=== PATIENT | female | born 1965 | race Caucasian/White ===

== ENCOUNTER 2016-09-17 19:04 | Emergency (ER) | payer OTHER ==
[2016-09-17 19:25] VITALS: BP 133/77
--- NOTE | 2016-09-17 19:49 | UC ---
Respiratory Complaint HPI - HPI Summary HPI Summary: Patient states she has had a sinus infection for almost 2 weeks. she states she gets them every year and always feels the same, with pressure around the eyes and around the cheeks. she has an associated cough but no sputum production. denies rhinorrhea. Denies ear pain, eye pain or tearing. Denies abd symptoms, nausea, vomiting or GILLETTE. - History of Current Complaint Chief Complaint: UCGeneralIllness Stated Complaint: SINUSES Hx Obtained From: Patient Hx Last Menstrual Period: n/a ?: No Onset/Duration: Sudden Onset Timing: Constant Severity Initially: Moderate Pain Intensity: 2 Pain Scale Used: 0-10 Numeric Character: Cough: Productive Aggravating Factors: Deep Breaths Associated Signs And Symptoms: Positive: Negative - Risk Factors Pulmonary Embolism Risk Factors: Negative Cardiac Risk Factors: Negative Pseudomonas Risk Factors: Negative Tuberculosis Risk Factors: Negative - Allergies/Home Medications Allergies/Adverse Reactions: Allergies Allergy/AdvReac Type Severity Reaction Status Date / Time Vitamin K Allergy convulsions Verified 08/19/16 10:04 PMH/Surg Hx/FS Hx/Imm Hx Previously Healthy: Yes Endocrine History Of: Denies: Diabetes Cardiovascular History Of: Denies: Hypertension, Pacemaker/ICD Respiratory History Of: Reports: Bronchitis Denies: Asthma GI/ History Of: Denies: Renal Disease - Surgical History Surgical History: Yes Surgery Procedure, Year, and Place: uterine ablation, left carpal and cupal tunnel releases-last surgery was 08/2015 - Family History Known Family History: Positive: Hypertension, Diabetes, Other - [place] - Social History Occupation: Employed Full-time Lives: With Family Alcohol Use: Weekly Alcohol Amount: 1-2 Substance Use Type: None Smoking Status (MU): Never Smoked Tobacco Have You Smoked in the Last Year: No Review of Systems Constitutional: Fatigue Skin: Negative ENT: Nasal Discharge, Other - sinus congestion Respiratory: Negative Cardiovascular: Negative Gastrointestinal: Negative Motor: Negative Neurovascular: Negative Musculoskeletal: Negative Psychological: Negative All Other Systems Reviewed And Are Negative: Yes Physical Exam Triage Information Reviewed: Yes Appearance: Well-Appearing, No Pain Distress, Well-Nourished Vital Signs: Initial Vital Signs Temp 98.4 F 09/17/16 19:08 Pulse 73 09/17/16 19:08 Resp 16 09/17/16 19:08 BP 133/77 09/17/16 19:08 Pulse Ox 99 09/17/16 19:08 Vital Signs Reviewed: Yes Eye Exam: Normal Eyes: Positive: Conjunctiva Clear ENT: Positive: Nasal congestion, Other: - painful on palpation Neck exam: Normal Neck: Positive: Supple, Nontender, No Lymphadenopathy Respiratory Exam: Normal Respiratory: Positive: Chest non-tender, Lungs clear Cardiovascular Exam: Normal Musculoskeletal Exam: Normal Musculoskeletal: Positive: Strength Intact, ROM Intact Neurological Exam: Normal Neurological: Positive: Alert Psychological Exam: Normal Psychological: Positive: Normal Response To Family, Age Appropriate Behavior Skin Exam: Normal UC Diagnostic Evaluation - Laboratory O2 Sat by Pulse Oximetry: 99 Respiratory Course/Dx - Course Course Of Treatment: Patient given augmentin twice daily for 7 days for sinusitis symptoms based on physical exam of painful maxillary sinus/pressure on palpation. - Differential Dx/Diagnosis Differential Diagnosis/HQI/PQRI: Bronchitis, Lower Resp Infection, Sinusitis Provider Diagnoses: sinusitis Discharge - Discharge Plan Condition: Stable Disposition: HOME Prescriptions: Albuterol HFA INHALER* [Ventolin HFA Inhaler*] 1 puff INH Q4H PRN #1 mdi PRN Reason: Cough Amoxicillin/Clavulanate TAB* [Augmentin TAB 875*] 875 mg PO BID #14 tab Patient Education Materials: Sinusitis (ED) Referrals: Rick Zaragoza MD [Primary Care Provider] - Additional Instructions: Fluids, rest, continue with mucinex and flonase. Images Head: 1 - painful on palpation
== END 2016-09-17 19:48 | disposition home or self-care (01) ==
LOC: UCCORT 19:04
DX: J32.9 Chronic sinusitis, unspecified (principal); Z88.8 Allergy status to other drugs, medicaments and biological substances
CPT/HCPCS: 99212; G0463

== ENCOUNTER 2016-12-26 15:00 | Emergency (ER) | payer OTHER ==
[2016-12-26 16:38] VITALS: BP 107/64
--- NOTE | 2016-12-26 16:50 | UC ---
Skin Complaint HPI - HPI Summary HPI Summary: ITCHY RASH MID LOWER BACK X 2 DAYS NO PAINFUL, NO KNOW ALLERGIC CONTACTS - History of Current Complaint Chief Complaint: UCRash Time Seen by Provider: 12/26/16 16:31 Stated Complaint: RASH Hx Obtained From: Patient Hx Last Menstrual Period: n/a ?: No Onset/Duration: Sudden Onset, Lasting Days - 2, Still Present Timing: Constant Onset Severity: Moderate Current Severity: Moderate Location: Discrete - MID LOWER BACK Character: Pruritus, Redness Aggravating: Nothing Alleviating: Nothing Associated Signs & Symptoms: Positive: Negative - Allergy/Home Medications Allergies/Adverse Reactions: Allergies Allergy/AdvReac Type Severity Reaction Status Date / Time Vitamin K Allergy convulsions Verified 12/26/16 16:38 Review of Systems Constitutional: Negative Skin: Negative Eyes: Negative ENT: Negative Respiratory: Negative Cardiovascular: Negative Gastrointestinal: Negative Genitourinary: Negative Motor: Negative Neurovascular: Negative Musculoskeletal: Negative Neurological: Negative Psychological: Negative All Other Systems Reviewed And Are Negative: Yes PMH/Surg Hx/FS Hx/Imm Hx Endocrine History Of: Denies: Diabetes Cardiovascular History Of: Denies: Hypertension, Pacemaker/ICD Respiratory History Of: Reports: Bronchitis Denies: Asthma GI/ History Of: Denies: Renal Disease - Surgical History Surgical History: Yes Surgery Procedure, Year, and Place: uterine ablation, left carpal and cupal tunnel releases-last surgery was 08/2015 - Family History Known Family History: Positive: Hypertension, Diabetes, Other - [place] - Social History Alcohol Use: Weekly Alcohol Amount: 1-2 Substance Use Type: None Smoking Status (MU): Never Smoked Tobacco Have You Smoked in the Last Year: No - Immunization History Most Recent Influenza Vaccination: none Physical Exam Triage Information Reviewed: Yes Appearance: Well-Appearing, No Pain Distress, Well-Nourished Vital Signs: Initial Vital Signs Temp 98.5 F 12/26/16 16:33 Pulse 61 12/26/16 16:33 Resp 17 12/26/16 16:33 BP 107/64 12/26/16 16:33 Pulse Ox 99 12/26/16 16:33 Eye Exam: Normal Eyes: Positive: Conjunctiva Clear ENT: Positive: Normal ENT inspection, Hearing grossly normal, Pharynx normal Neck exam: Normal Neck: Positive: Supple, Nontender, No Lymphadenopathy Respiratory: Positive: Chest non-tender, Lungs clear, Normal breath sounds Cardiovascular: Positive: RRR, No Murmur, Pulses Normal Skin: Positive: rashes - MACULAR RASH ABOUT 5 CM IN DIAMETER MID LOWER BACK Course/Dx - Diagnoses Provider Diagnoses: ECZEMA Discharge - Discharge Plan Condition: Stable Disposition: HOME Prescriptions: Triamcinolone 0.1% CREAM (NF) [Kenalog 0.1% Cream (NF)] 1 applic .SEE ORDER BID #30 gm Patient Education Materials: Eczema (ED) Referrals: Rick Zaragoza MD [Primary Care Provider] - If Needed
== END 2016-12-26 16:50 | disposition home or self-care (01) ==
LOC: UCCORT 15:00
DX: L30.9 Dermatitis, unspecified (principal)
CPT/HCPCS: 99212; G0463

== ENCOUNTER 2017-03-08 08:37 | Day surgery (SDC) | payer OTHER ==
--- NOTE | 2017-02-26 15:36 | HP ---
PREOPERATIVE HISTORY AND PHYSICAL: DATE OF ADMISSION/SURGERY: 03/08/17 DATE OF OFFICE VISIT: 02/26/17 ATTENDING SURGEON: Sera Alicea MD. PROCEDURE: Right shoulder arthroscopic excision distal clavicle, decompression, debridement, and larose bpectoral biceps tenodesis. CHIEF COMPLAINT: Right shoulder pain. HISTORY OF PRESENT ILLNESS: Jackeline is a 51-year-old female who presents to the clinic for ongoing r ight shoulder pain due to biceps tendinitis, impingement syndrome and AC joint arthritis. Patient f molly conservative measures and therefore agreed to undergo a right shoulder arthroscopic excision d istal clavicle, decompression, debridement and subpectoral biceps tenodesis. PAST MEDICAL HISTORY: 1. Phlebitis. 2. DVT. 3. High cholesterol. 4. Arthritis. 5. Anemia. 6. Obstructive sleep apnea. PAST SURGICAL HISTORY: Bilateral carpal tunnel and cubital tunnel release, and a colonoscopy. Denies prior complications with anesthesia. MEDICATIONS: 1. Valium 10 mg, take 45 minutes prior to MRI. 2. Methylphenidate HCl 5 mg, take 2 tablets by mouth every morning and 1 tablet in the afternoon. 3. Atorvastatin 10 mg daily. 4. Venlafaxine HCl ER 37.5 mg daily. ALLERGIES: VITAMIN K. FAMILY HISTORY: Positive for hypertension and AFib in her father. SOCIAL HISTORY: She lives with her spouse. She works as a speech pathologist. She denies tobacco u se. She reports occasional alcohol consumption. She is right handed. REVIEW OF SYSTEMS: General: Negative for fever, chills, night sweats. No known anesthesia problem s. HEENT: Negative for headache, lightheadedness, or syncopal episodes. Integumentary: Negative for abrasions, lesions, or open wounds. Cardiothoracic: Negative for chest pain, palpitations or ed rell. Negative for hypertension. Pulmonary: Negative for shortness of breath with exertion, chroni c cough or COPD. GI: Negative for nausea, vomiting, diarrhea, constipation. Positive for intermitt ent GERD. : Negative for nocturia, urinary frequency, history of UTI or kidney problems. Muscul oskeletal: Positive for current complaint. Neuro: Denies numbness, tingling. Denies history of s eizure, stroke, or epilepsy. Endocrine: Negative for diabetes or thyroid issues. Heme: Positive for history of DVT. Denies prior history of PE. Denies bleeding disorder. Infectious Disease: Neg ative for history of MRSA, hep C, or HIV. PHYSICAL EXAMINATION GENERAL: Well-developed, well-nourished 51-year-old female, in no acute distress. Alert and oriente d x3. Appropriate mood and affect. VITAL SIGNS: Height is 67, weight 180, pulse 91, blood pressure 116/84, temperature 98.6, BMI 28.2. HEENT: Normocephalic, atraumatic. PERRLA. Throat clear NECK: Supple. PULMONARY: Lungs clear to auscultation bilaterally. No wheezing, rhonchi, or rales. CARDIO: Regular rate and rhythm, S1, S2. No murmurs, gallops, rubs. No edema. ABDOMEN: Positive bowel sounds, soft, nontender. NEUROLOGIC: Alert and oriented x3. Cranial nerves grossly intact. Sensation intact to light touch . MUSCULOSKELETAL: Right upper extremity, skin is intact. No warmth, erythema. Tenderness to palpati on over the AC joint in the anterior joint line as well as the proximal biceps tendon, forward flexi on 150, abduction 120. External rotation 45, internal rotation to the lumbar spine. +4/5 strength to rotator cuff testing with pain. +2 radial and ulnar pulses. Sensation is intact to light touch distally. STUDIES: MRI of the right shoulder reveals partial thickness tearing of bursal side of the suprasp inatus tendon as well as SLAP tear, biceps tendinitis with fluid in the bicipital groove, also AC ahsan int arthritis. IMPRESSION: Right shoulder acromioclavicular arthritis, partial rotator cuff tear and biceps tendin itis. PLAN: Patient is scheduled to undergo a right shoulder arthroscopic excision distal clavicle, decom pression, debridement, and subpectoral biceps tenodesis with Dr. Alicea on 03/08/17. Patient has be en cleared by her primary care physician. The primary care physician recommends aspirin 325 mg daily starting 2 days after surgery until the right upper extremity is no longer immobilized for DVT prop hylaxis since the patient has a history of prior DVT. She will return to the office 10 to 14 days p ostop for followup and suture removal. Percocet will be prescribed to the patient's pharmacy for po stop pain management and Keflex was sent for antibiotic prophylaxis. ROBERTO CARLOS [place], [place] [id number]/[facility] #: [id number]
[~2017-03-08 08:37] MED LIST: Buffered Lidocaine 0.9% SYRIN* 5 ML/SYR SYRINGE INTRADERM ONE; Bupivacaine 0.25% SDV* 30 ML ONE; Famotidine IV* 10 MG/ML 2 ML (20 mg) IV ONE; Morphine INJ* 2 MG/ML 1 ML SYRINGE IV PRN; PROCHLORPERAZINE INJ 5 MG/ML 2 ML VIAL IV PRN; Scopolamine 1.5 mg* PATCH TRANSDERM PRN; fentaNYL* 50 MCG/ML 2 ML VIAL (100 MCG VIAL) IV PRN; oxyCODONE/Acetamin 5/325 MG* TAB PO PRN
[2017-03-08] MEDS ORDERED: ceFAZolin 2 GM PREMIX(*) 2 GM/50 ML BAG IVPB ONE (08:49)
[2017-03-08] MEDS ORDERED: Buffered Lidocaine 0.9% SYRIN* 5 ML/SYR SYRINGE ONE (08:49)
[2017-03-08] MEDS ORDERED: Famotidine IV* 10 MG/ML 2 ML (20 mg) ONE (08:49)
[2017-03-08] MEDS ORDERED: Midazolam* 1 MG/ML 5 ML VIAL (5 MG) ONE (09:50)
[2017-03-08] MEDS ORDERED: fentaNYL* 50 MCG/ML 2 ML VIAL (100 MCG VIAL) ONE (09:50)
[2017-03-08] MEDS ORDERED: KETAMINE HCL* 50 MG/ML 10 ML VIAL ONE (09:50)
[2017-03-08] MEDS ORDERED: Bupivacaine 0.25% SDV* 30 ML ONE (10:09)
[2017-03-08] MEDS ORDERED: Lidocaine 2% PF * 5 ML VIAL ONE (11:17)
[2017-03-08] MEDS ORDERED: Ondansetron INJ* 2 MG/ML VIAL ONE (11:17)
[2017-03-08] MEDS ORDERED: Dexamethasone IV* 4 MG/ML 1 ML (4 MG) ONE (11:17)
[2017-03-08] MEDS ORDERED: Ketorolac INJ* 30 MG/ML 1 ML VIAL ONE (11:17)
[2017-03-08] MEDS ORDERED: Propofol* 10 MG/ML 20 ML BTL IV PUSH ONE (11:17)
[2017-03-08] MEDS ORDERED: EPHEDrine (Pressors)* 50 MG/ML VIAL ONE (11:17)
[2017-03-08] MEDS ORDERED: methylPREDNISolone ACETATE 80* 80 MG/ML 1 ML VIAL ONE (11:36)
[2017-03-08] MEDS ORDERED: Morphine INJ* 10 MG/ML 1 ML SYRINGE ONE (11:52)
[2017-03-08] MEDS ORDERED: PROCHLORPERAZINE INJ 5 MG/ML 2 ML VIAL ONE (13:20)
[2017-03-08] MEDS ORDERED: Scopolamine 1.5 mg* PATCH ONE (13:20)
[2017-03-08 14:21] VITALS: BP 110/66
[2017-03-11] MEDS ORDERED: Scopolomine PATCH Remove* 1 NOTE MISC PATCH OFF ONE (06:09)
--- NOTE | 2017-03-18 02:21 | OP ---
CC: PCP, Dr. Rick Miranda* DATE OF OPERATION: 03/08/17 - [facility] DATE OF : 63 SURGEON: Sera Alicea MD BOW MAKER PRODUCTION: VIVIAN Leonard. An assistant superintendent for curriculum was needed for the entirety of the case for positioning, retraction, and was utilized throughout all portions of the case. ANESTHESIOLOGIST: Dr. Werner. ANESTHESIA: General interscalene block. PRE-OP DIAGNOSES: Right shoulder impingement, AC joint arthritis, biceps tendonitis with possible SLAP tear. POST-OP DIAGNOSES: Right shoulder impingement, AC joint arthritis, biceps tendonitis with possible SLAP tear. OPERATIVE PROCEDURES: 1. Right shoulder arthroscopy with extensive glenohumeral debridement including mild chondroplasty. 2. Subacromial decompression with acromioplasty. 3. Distal clavicle excision. 4. Subpectoral biceps tenodesis. IMPLANTS USED: One Q-Fix 2.8 mm. COMPLICATIONS: None. ESTIMATED BLOOD LOSS: Minimal. DISPOSITION: Stable. INDICATIONS: Jackeline Sidhu is a 51-year-old female who has had a several-month history of right shoulder pain, AC joint arthritis as well as impingement, and bicipital pain. She has failed conservative management including injections, physical therapy, and has elected to proceed with surgical treatment. Risks and benefits of surgery were discussed at length including, but not limited to bleeding, infection, damage to nerves, vessels, surrounding structures, wound non-healing, persistent pain, need for further surgery, scarring, stiffness, incomplete relief of symptoms, failure of the repair, risk of anesthesia as well as risk of DVT. She does have a previous history of DVT and therefore, we will place her on Lovenox postoperatively. DESCRIPTION OF PROCEDURE: The patient was greeted in the preoperative area by the attending surgeon. Correct extremity was marked and consent was confirmed. The patient then underwent interscalene nerve block by the anesthesiologist after which she was brought back to the operating suite where she was placed in the left lateral decubitus position with a small axillary roll. All bony prominences were padded. She was supported with a pegboard. The right arm was draped with 10 pounds of traction. The right shoulder was prepped and draped in the usual sterile fashion beginning with a chlorhexidine soap, scrub, and alcohol wipe, and a final prep with ChloraPrep. After appropriate surgical pause indicating site, side, procedure, and administration of antibiotics, the standard postero-lateral portal was made sharply with an 11 blade. Scope was introduced into the joint. The joint was examined. There was obvious tear in the superior labrum. Anterior and posterior labrum and the inferior recess was intact. The inner surface of the supraspinatus tendon was intact with mild fraying. The subscapularis was also intact, but had some mild fraying as well. The anterior portal was made in an outside-in fashion. The biceps was then tenotomized and the shaver was brought in to debride the anterior, posterior, superior labrum and the undersurface of the subscapularis, which was otherwise intact. The inner surface of the supraspinatus was evaluated and had mild amount of partial tearing, but was otherwise intact. This was then probed and marked with a 0 PDS suture to be identified on the bursal side. There was no tearing bursally. Once the debridement was completed, a small amount of chondral wear grade 1 to 2 changes were then debrided back along the glenoid. Once this was completed, attention was directed to the subacromial space. The scope was introduced into the subacromial space and the lateral portal was made in an outside-in fashion. Shaver was used to debride back the abundant bursa that was present. A moderate size subacromial spur was identified and then debrided back using the 4.0 oval rakan. The bursectomy was done with care to protect the previously placed marking sutures. Once the decompression was completed, all loose fluid and debris was removed. Attention was directed to the AC joint. The rakan was brought into the anterior portal and approximately 8 mm of the distal clavicle was resected with care to preserve the CT ligaments. The clavicle was taken through range of motion and found to be stable. All fluid and debris was removed and then attention was directed to the rotator cuff. The probe was used to gently probe the bursal side of the cuff and was found to be intact and decision was made to not repair the cuff as there was less than 5 % tearing on the undersurface and no bursal-sided tearing and did appear to have adequate tissue. At this point, attention was directed to the biceps. The bed was then air planed to the right side. The anterior aspect of the shoulder was prepped again with ChloraPrep and a 15 blade was used to make an incision in line with the biceps tendon. The soft tissue were carefully dissected using Metzenbaum scissors. Once the pec fascia was identified, the remainder of the dissection was done bluntly. The pec was then superiorly elevated using the [place] blade. The biceps groove was then palpated and a small juan manuel in the groove was then made using electrocautery device. Biceps was brought through the wound and examined. There was abundant hyperemia and synovitis present. The bicipital groove was then prepared in usual fashion with electrocautery device with the red ball rasp and the osteotome. At this point, the Q-Fix guide was then used to drill unicortically to deploy the Q-Fix anchor. This was then deployed with excellent purchase. The biceps was then secured. Sutures were passed through the biceps tendon using Ezekiel-Sunday type configuration. The excess stump was debrided back. The biceps was then shuttled back to the wound and then it was secured using knot tie. The wounds were copiously irrigated with sterile fluid. The subacromial space was injected with 80 mg of Depo-Medrol and 5 cc of Marcaine. The portals were closed with 3-0 nylon. The anterior wounds were closed in layers with 2-0 Vicryl and 3-0 Monocryl. Sterile dressings were applied. The anterior wound was injected with 20 cc of 0.25% Marcaine plain. Cryo/Cuff and UltraSling were then applied. She was then awoke from anesthesia and transferred to the PACU in stable condition. POSTOPERATIVE PLAN: She will be nonweightbearing for approximately 6 weeks. She will start physical therapy in the first 10 to 14 days. She will be discharged with pain medications as well as antibiotics. DVT prophylaxis was considered and due to the previous history, we will place her on Lovenox after surgery. Then, she will transition to aspirin as per her primary care recommendations. She will follow up in 10 to 14 days for wound check and suture removal. [id number]/[facility] #: [id number] [facility] HOSPITALJason
== END 2017-03-08 14:00 | disposition home or self-care (01) ==
LOC: OREAST 08:37
PROVIDERS: ATTEND Orthopaedic Surgery
DX: M25.811 Other specified joint disorders, right shoulder (principal); M19.011 Primary osteoarthritis, right shoulder; M75.81 Other shoulder lesions, right shoulder; Z86.718 Personal history of other venous thrombosis and embolism; E78.00 Pure hypercholesterolemia, unspecified; G47.33 Obstructive sleep apnea (adult) (pediatric); Z88.8 Allergy status to other drugs, medicaments and biological substances
CPT/HCPCS: A9270-GY; C1776; J0690; J0780; J1040; J1100; J1885; J2250; J2270; J2405; J2704; J3010

== ENCOUNTER 2017-08-13 12:21 | Emergency (ER) | payer OTHER ==
[2017-08-13 13:04] VITALS: BP 125/70
--- NOTE | 2017-08-13 14:01 | UC ---
Respiratory Complaint HPI - HPI Summary HPI Summary: ONSET OF SINUS CONGESTION/PRESSURE, GILLETTE, ST, MILD COUGH AND CHEST HEAVINESS YESTERDAY. PT QUALIFIES HER SX LUNGS FEELING "HEAVY". DENIES CHEST PAIN, SOB , NAUSEA. HAD EMERGENT APPENDECTOMY 07/28/17. - History of Current Complaint Chief Complaint: UCRespiratory Stated Complaint: HEAVY CHEST POST SURGERY Time Seen by Provider: 08/13/17 13:33 Hx Obtained From: Patient Hx Last Menstrual Period: n/a Onset/Duration: Gradual Onset, Lasting Days, Still Present Timing: Constant Severity Initially: Moderate Severity Currently: Moderate Pain Intensity: 0 Pain Scale Used: 0-10 Numeric Character: Cough: Nonproductive Aggravating Factors: Nothing Alleviating Factors: Nothing Associated Signs And Symptoms: Positive: URI, Nasal Congestion, Sinus Discomfort. Negative: Fever, Chills, Pleuritic Chest Pain, Dizziness - Allergies/Home Medications Allergies/Adverse Reactions: Allergies Allergy/AdvReac Type Severity Reaction Status Date / Time Vitamin K Allergy convulsions Verified 08/13/17 13:04 PMH/Surg Hx/FS Hx/Imm Hx Endocrine History: Dyslipidemia - Surgical History Surgical History: Yes Surgery Procedure, Year, and Place: uterine ablation, left carpal and cupal tunnel releases-last surgery was 08/2015; DVT left leg post 1992- clotting factors were normal. bicep repair. clavicle reduction. appy 07/2017 - Family History Known Family History: Positive: Cardiac Disease, Hypertension, Diabetes, Other - [place] - Social History Alcohol Use: Occasionally Alcohol Amount: 1-2 Substance Use Type: None Smoking Status (MU): Never Smoked Tobacco Have You Smoked in the Last Year: No - Immunization History Most Recent Influenza Vaccination: none Review of Systems Constitutional: Fatigue ENT: Sore Throat, Nasal Discharge Respiratory: Cough, Other - LUNGS FEEL "HEAVY" Cardiovascular: Negative Gastrointestinal: Negative Neurological: Headache All Other Systems Reviewed And Are Negative: Yes Physical Exam Triage Information Reviewed: Yes Appearance: No Pain Distress, Well-Nourished, Other: - LOOK FATIGUED Vital Signs: Initial Vital Signs Temp 98.6 F 08/13/17 12:54 Pulse 84 08/13/17 12:54 Resp 24 08/13/17 12:54 BP 125/70 08/13/17 12:54 Pulse Ox 97 08/13/17 12:54 Vital Signs Reviewed: Yes Eyes: Positive: Conjunctiva Clear ENT: Positive: Hearing grossly normal, Pharynx normal, TMs normal Neck: Positive: Supple, Nontender, No Lymphadenopathy Respiratory Exam: Normal Cardiovascular Exam: Normal Abdomen Description: Positive: Soft Musculoskeletal: Positive: No Edema Neurological: Positive: Alert Psychological: Positive: Age Appropriate Behavior Skin: Positive: Other - LAP APPY INCISIONS HEALING WELL UC Diagnostic Evaluation - Laboratory O2 Sat by Pulse Oximetry: 97 - EKG Cardiac Rate: NL Cardiac Rhythm: Sinus: Normal - 70BPM Ectopy: None ST Segment: Normal Respiratory Course/Dx - Differential Dx/Diagnosis Provider Diagnoses: ACUTE BRONCHITIS Discharge - Discharge Plan Condition: Stable Disposition: HOME Prescriptions: Azithromycin [Azithromycin 500 MG TAB] 500 mg PO DAILY #5 tab Patient Education Materials: Acute Bronchitis (ED) Referrals: Rick Zaragoza MD [Primary Care Provider] - If Needed
--- OUTSIDE RECORDS SUMMARY | 2017-08-13 14:42 | XMS REPORT | Continuity of Care Document ---
:1965 Author Organization [facility] Care Team Providers Name Role Phone SHADE ROTHMAN MD Primary Care Physician Insurance Providers Payer Name Policy Number Subscriber Name Relationship [employer] [id number] AJMESKASIAALTAGRACIA BULL Advance Directives Directive Response Recorded Date/Time Advance Directive? N 07/29/17 1:12am Living Will? N 07/29/17 1:12am Health Care Proxy? N 07/29/17 1:12am Is the patient an Organ Donor? N 07/28/17 2:45pm Chief Complaint and Reason for Visit Reason for Visit ACUTE APPENDICITIS Problems Active Medical Problems Problem Onset Date Recorded Date Status Chest pain Unknown 10/26/14 Active Acute appendicitis Unknown 07/28/17 Active Medications Current Home Medications Medication Dose Units Route Directions Days/Qty Instructions Start Date ALBUTEROL 1 PUFF INHALATION EVERY 8 HOURS 1 (VENTOLIN HFA *) 1 as needed for EACH EA SOB Atorvastatin 10 MG ORAL ONCE DAILY Calcium (Lipitor) 10 MG TABLET Cholecalciferol 2,000 UNIT ORAL ONCE DAILY (Vitamin D3) (Vitamin D) 2,000 UNIT TABLET Fluticasone 1 SPR NASAL 2 TIMES A DAY Propionate NEEDED for (Flonase) 50 NASAL MCG/ACTUATION STUFFINESS SPRAY.SUSP Guaifenesin 600 MG ORAL EVERY 12 (Mucinex) 600 MG HOURS as TABLET.ER needed for COUGH Hydrocodone 1 TABLET ORAL EVERY 6 HOURS 15 may use two Bit/Acetaminophen NEEDED as tablets every 7 (Hydrocodon-Acetam needed for 8 hoursif inophen 5-325 *) 5 PAIN needed MG-325 MG TABLET Levofloxacin 500 MG ORAL ONCE DAILY 7 take it with (Levofloxacin *) food 7 500 MG TABLET Methylphenidate 5 MG ORAL EVERY EVENING (Ritalin) 5 MG TAB as needed for ALERTNESS Methylphenidate 10 MG ORAL ONCE DAILY 90 HCl 5 MG TABLET Venlafaxine HCl 75 MG ORAL ONCE DAILY 30 (Venlafaxine HCl ER) 75 MG CAP.ER.24H Past Home Medications Medication Directions Ordered Status Amoxicillin 875 Mg Tablet Tablet, 875 EVERY 12 HOURS Unknown Discontinued Mg Oral Meclizine Hcl (Antivert) 25 Mg Tablet 3 TIMES A DAY NEEDED 10/22/12 Discontinued Tablet, 25 Mg Oral Venlafaxine (Venlafaxine Hcl) 25 Mg Tab 2100 Unknown Discontinued Tab, Family History Relationship Name Date of Condition Age ( At Cause Age ( Age Gender Recorded Onset ) of At Date/Time ) SON Family history M 07/29/17 of cardiac 0 disorder SON Family history M 07/29/17 of sleep apnea 2119 FATHER Family history M 07/29/17 of hypertension 0 FATHER Family history M 07/29/17 of cardiac 2120 disorder FATHER Family history M 07/29/17 of sleep apnea 2119 BROTHER Family history M 07/29/17 of sleep apnea 2119 MOTHER Family history F 07/29/17 of sleep apnea 2119 Social History Problem Response Recorded Date Other substance/drug use NONE 07/28/17 Alcohol amt OCCAS 09/01/10 Query Response Start Date Stop Date Smoking Status Never smoker Status Date Recorded Not July 29, 2017 Hospital Discharge Instructions Physician Instructions to use at Home Activity Limitation Yes (no heavy lifting for 6 weeks) Main Diet REGULAR Special Instructions: avoid constipation. increase fruits and vegetables in your diet. use over the counter stool softener if need be. Appointments have been made with the following Providers: please have a follow up with my clinic in 10-14 days. [phone] Call your doctor for : Discharge Care Plan Problem: Manage your health Goal: Maintain health/wellness Instructions: Follow DC instructions Nursing Comments: keep follow up appointment with your Dr. Wash and pat dry incisions daily. Report any drainage, reddness or swelling on incision sites. Report any fevers to your DrVu Activity and return to work as approved by your Dr. Plan of Care Discharge Date 07/30/17 Disposition Routine Discharge Home Instructions/Education Provided Laparoscopic Appendectomy (DC) Prescriptions See Medications Section Care Plan and Goals See Discharge Instructions section Functional Status Query Response Date Recorded Do you get in and out of a chair: Independently July 29, 2017 1:12am Do you walk: Independently July 29, 2017 1:12am Do you bathe/dress: Independently July 29, 2017 1:12am Adaptive devices: None July 29, 2017 1:12am Amount of assistance needed: None July 29, 2017 1:12am Allergies, Adverse Reactions, Alerts Allergen Type Severity Reaction Status Last Updated phytonadione (vitamin K1) Allergy Severe SEIZURE Active 10/26/14 Immunizations Name Date Given Type Last Tetanus UTD Historical Influenza, Quadrivalent, Injectable Administered Vital Signs Vital Reading Collection Date/Time Result Blood Pressure 07/30/17 7:30am 100/72 Temperature 07/30/17 7:30am 98.2 F Temperature Source 07/30/17 7:30am Tympanic Respiratory Rate 07/30/17 7:30am 16 Pulse Rate 07/30/17 7:30am 62 Bedside Pulse Oximetry 07/30/17 4:50am 92 Height 07/29/17 1:12am 5 ft 7 in Height 07/29/17 1:12am 170.18 cm Weight 07/29/17 1:12am 173 lb Weight 07/29/17 1:12am 78.472 kg Body Mass Index 07/29/17 1:12am 27.1 kg/m2 Results Laboratory Results Test Name Result Units Flags Reference Collection Result Comments Date/Time Date/Time White Blood Count 10.4 K/uL 3.1-10.7 07/30/17 07/30/17 8:06am 9:50am Red Blood Count 4.55 M/uL 3.90-5.40 07/30/17 07/30/17 8:06am 9:50am Hemoglobin 13.3 gm/dL 11.6-15.8 07/30/17 07/30/17 8:06am 9:50am Hematocrit 41.7 % 36.0-46.1 07/30/17 07/30/17 8:06am 9:50am Mean Corpuscular 91.6 fl 80.9-99.0 07/30/17 07/30/17 Volume 8:06am 9:50am Mean Corpuscular 29.2 pg 25.9-32.7 07/30/17 07/30/17 Hemoglobin 8:06am 9:50am Mean Corpuscular 31.9 g/dL 30.8-34.3 07/30/17 07/30/17 Hemoglobin Concent 8:06am 9:50am Platelet Count 262 K/uL 150-400 07/30/17 07/30/17 8:06am 9:50am RDW Coefficient of 14.3 % 11.7-14.4 07/30/17 07/30/17 Variation 8:06am 9:50am Mean Platelet 10.9 fL 8.9-12.4 07/30/17 07/30/17 Volume 8:06am 9:50am Glucose Screen 118 mg/dL H 74-106 07/30/17 07/30/17 8:06am 10:08am Blood Urea 10 mg/dL 7-18 07/30/17 07/30/17 Nitrogen 8:06am 10:08am Creatinine 1.0 mg/dL 0.6-1.3 07/30/17 07/30/17 8:06am 10:08am Estimated GFR >60 mL/min >60 07/30/17 07/30/17 (Non- 8:06am 10:08am [place] Estimated GFR >60 mL/min >60 07/30/17 07/30/17 Note: () 8:06am 10:08am Persistent reduction for 3 months or more in an eGFR <60 mL/min/1.73 m2 defines CKD. Patients with eGFR values >/=60 mL/min/1.73 m2 may also have CKD if evidence of persistent proteinuria is present. The original MDRD equation for estimated GFR is not valid for patients less than 18 years of age. Additional information may be found at www.kdoqi.org. BUN/Creatinine 10.0 ratio 07/30/17 07/30/17 Ratio 8:06am 10:08am Sodium Level 140 mmol/L 136-145 07/30/17 07/30/17 8:06am 10:08am Potassium Level 3.8 mmol/L 3.5-5.1 07/30/17 07/30/17 8:06am 10:08am Chloride Level 105 mmol/L 98-107 07/30/17 07/30/17 8:06am 10:08am Carbon Dioxide 28 mmol/L 21-32 07/30/17 07/30/17 Level 8:06am 10:08am Anion Gap 7 mEq/L L 8-16 07/30/17 07/30/17 8:06am 10:08am Calcium Level 8.7 mg/dL 8.5-10.1 07/30/17 07/30/17 8:06am 10:08am Magnesium Level 2.3 mg/dL 1.8-2.4 07/30/17 07/30/17 8:06am 10:08am Red Cell 42.5 fl 3-47 07/28/17 07/28/17 Distribution Width 4:58pm 5:06pm Neutrophils (%) 74.9 % H 40.4-72.8 07/28/17 07/28/17 (Auto) 4:58pm 5:06pm Lymphocytes (%) 15.3 % L 20.0-42.0 07/28/17 07/28/17 (Auto) 4:58pm 5:06pm Monocytes (%) 8.2 % 4.3-13.2 07/28/17 07/28/17 (Auto) 4:58pm 5:06pm Eosinophils (%) 1.3 % 0.0-6.6 07/28/17 07/28/17 (Auto) 4:58pm 5:06pm Basophils (%) 0.3 % 0.0-1.1 07/28/17 07/28/17 (Auto) 4:58pm 5:06pm Neutrophils # 8.65 K/uL H 1.8-7.0 07/28/17 07/28/17 (Auto) 4:58pm 5:06pm Lymphocytes # 1.76 K/uL 1.0-4.0 07/28/17 07/28/17 (Auto) 4:58pm 5:06pm Monocytes # (Auto) 0.94 K/uL H 0.3-0.9 07/28/17 07/28/17 4:58pm 5:06pm Eosinophils # 0.15 K/uL 0.0-0.5 07/28/17 07/28/17 (Auto) 4:58pm 5:06pm Basophils # (Auto) 0.03 K/uL 0.0-0.1 07/28/17 07/28/17 4:58pm 5:06pm Total Protein 7.3 g/dL 6.4-8.2 07/28/17 07/28/17 4:58pm 5:37pm Albumin 3.6 g/dL 3.4-5.0 07/28/17 07/28/17 4:58pm 5:37pm Globulin 3.7 g/dL 1.9-4.3 07/28/17 07/28/17 4:58pm 5:37pm Albumin/Globulin 1.0 ratio 07/28/17 07/28/17 Ratio 4:58pm 5:37pm Total Bilirubin 0.6 mg/dL 0.2-1.0 07/28/17 07/28/17 4:58pm 5:37pm Aspartate Amino 46 U/L H 15-37 07/28/17 07/28/17 Transf (AST/SGOT) 4:58pm 5:37pm Alanine 54 U/L 12-78 07/28/17 07/28/17 Aminotransferase 4:58pm 5:37pm (ALT/SGPT) Alkaline 95 U/L 45-117 07/28/17 07/28/17 Phosphatase 4:58pm 5:37pm Lipase 128 U/L 56-289 07/28/17 07/28/17 4:58pm 5:37pm Urine Color YELLOW YELLOW 07/28/17 07/28/17 4:28pm 4:37pm Urine Clarity CLEAR CLEAR 07/28/17 07/28/17 4:28pm 4:37pm Urine Glucose (UA) NEGATIVE mg/dL NEGATIVE 07/28/17 07/28/17 4:28pm 4:37pm Urine Bilirubin NEGATIVE NEGATIVE 07/28/17 07/28/17 4:28pm 4:37pm Urine Ketones NEGATIVE mg/dL NEGATIVE 07/28/17 07/28/17 4:28pm 4:37pm Urine Specific <=1.005 L 1.010-1.030 07/28/17 07/28/17 [place] 4:28pm 4:37pm Urine Blood TRACE NEGATIVE 07/28/17 07/28/17 4:28pm 4:37pm Urine pH 6.0 L 6.5-7.5 07/28/17 07/28/17 4:28pm 4:37pm Urine Protein NEGATIVE mg/dL NEGATIVE 07/28/17 07/28/17 4:28pm 4:37pm Urine Urobilinogen 0.2 E.U./dL 0.2-1.0 07/28/17 07/28/17 4:28pm 4:37pm Urine Nitrite NEGATIVE NEGATIVE 07/28/17 07/28/17 4:28pm 4:37pm Urine Leukocyte NEGATIVE NEGATIVE 07/28/17 07/28/17 Esterase 4:28pm 4:37pm [place] [address] Patient: EILEEN BULL Unit #: [id number] : 63 Admit Date: 07/28/17 Discharge General Discharge Diagnosis Problem List Medical Problems Acute appendicitis Chest pain Activity Instructions Activity Limitation Yes (no heavy lifting for 6 weeks) Diet Instructions Main Diet REGULAR Special Instructions: avoid constipation. increase fruits and vegetables in your diet. use over the counter stool softener if need be. [facility] Case Management Discharge Routine Case Management Discharge Routine* Appointments have been made with the following Providers: please have a follow up with my clinic in 10-14 days. [phone] Please take a copy of discharge paperwork to upcoming appt. Please take a copy of discharge paperwork to upcoming appt. Follow up Care Call your doctor for : Med List/Allergy Instructions Allergies Allergies Coded Allergies: phytonadione (vitamin K1) (phytonadione) (Severe, SEIZURE 10/26/14) Meds at Discharge Meds at Discharge Stop taking the following medications: Amoxicillin (Amoxicillin) 875 MG TABLET ORAL EVERY 12 HOURS Qty=20 Continue taking these medications: Fluticasone Propionate (Flonase) 50 MCG/ACTUATION SPRAY.SUSP 1 SPR NASAL 2 TIMES A DAY NEEDED Comments: 1 SPRAY EASCH NOSTRIL Atorvastatin Calcium (Lipitor) 10 MG TABLET 10 MILLIGRAM ORAL ONCE DAILY Methylphenidate HCl (Methylphenidate HCl) 5 MG TABLET 10 MILLIGRAM ORAL ONCE DAILY Qty=90 Methylphenidate (Ritalin) 5 MG TAB 5 MILLIGRAM ORAL EVERY EVENING as needed for ALERTNESS Venlafaxine HCl (Venlafaxine HCl ER) 75 MG CAP.ER.24H 75 MILLIGRAM ORAL ONCE DAILY Qty=30 ALBUTEROL (VENTOLIN HFA *) 1 EACH EA 1 PUFF INHALATION EVERY 8 HOURS as needed for SOB Qty=1 Guaifenesin (Mucinex) 600 MG TABLET.ER 600 MILLIGRAM ORAL EVERY 12 HOURS as needed for COUGH Cholecalciferol (Vitamin D3) (Vitamin D) 2,000 UNIT TABLET 2,000 UNITS ORAL ONCE DAILY Start taking the following new medications: Levofloxacin (Levofloxacin *) 500 MG TABLET 500 MILLIGRAM ORAL ONCE DAILY not to exceed 1 per day Qty=7 Refills=AD Instructions: take it with food Hydrocodone Bit/Acetaminophen (Hydrocodon-Acetaminophen 5-325 *) 5 MG-325 MG TABLET 1 TABLET ORAL EVERY 6 HOURS NEEDED as needed for PAIN not to exceed 6 per day Qty=15 No Refills Instructions: may use two tablets every 8 hours if needed Electronically Signed: SMITH SHEA MD Signed Date/Time: 07/30/17 @ 1205 Procedures Procedure Status Date Provider(s) CT ABDO & PELV W/ IV CONTRAST Completed 07/28/17 MAURO RODRÍGUEZ MD CHEST PA AND LATERAL Completed 07/28/17 MAURO RODRÍGUEZ MD Encounters Encounter Location Arrival/Admit Date Discharge/Depart Date Attending Provider Discharged [place] 07/28/17 2:27pm 07/30/17 1:00pm SMITH SHEA [facility] Encounter Diagnosis Onset Date Acute appendicitis
--- OUTSIDE RECORDS SUMMARY | 2017-08-13 14:42 | XMS REPORT ---
:1965 External Reference #:[id number] Author Organization [facility] Address [address], [address] [place] [address] Phone [phone] Care Team Providers Name Role Phone Adriana Amaya MD Care Team Information Supervisor [employer] Unavailable Payers Type Date Identification Numbers Payment Provider Subscriber Commercial Policy Number: [id number] Lifetime Benefit [employer] PayID: [id number] [address] [place] [address] Problems Date Description Provider Status Onset: 08/10/2017 Mixed hyperlipidemia Mason Batres MD, FACS Active Onset: 08/10/2017 Acute appendicitis with peritoneal Mason Batres MD,JUSTUS Active abscess Social History Description No Information Available Allergies, Adverse Reactions, Alerts Date Description Reaction Status Severity Comments 08/10/2017 Vitamin K active Medications Medication Date Status Form Strength Qnty SIG Indications Ordering Provider Methylphenidate / Active Tablets 5mg Digiovann HCL 0000 Rick ng MD Atorvastatin / Active Tablets 10mg Digiovann Calcium 0000 aRick MD Venlafaxine HCL / Active Caps ER 75mg Unknown ER 0000 24HR Flonase Allergy 00/ Active Suspension 50mcg/Act 1 spray Unknown Relief 0000 each nare every day Ventolin HFA / Active Aerosol 108(90Bas inhale 2 Unknown 0000 e) puffs mcg/Act four times a day for 5 days then if needed for wheezing Vital Signs Date Vital Result Comment 08/10/2017 BP Systolic 116 mmHg BP Diastolic 78 mmHg Height 67 inches 5'7" Weight 175.00 lb BMI (Body Mass Index) 27.4 kg/m2 BSA (Body Surface Area) 1.91 m2 [place] body weight in kilograms 61 Results Test Date Test Result H/L Range Note CBC 07/30/2017 White Blood Count 10.4 K/uL 3.1-10.7 1 Red Blood Count 4.55 M/uL 3.90-5.40 1 Hemoglobin 13.3 gm/dL 11.6-15.8 1 Hematocrit 41.7 % 36.0-46.1 1 Mean Cell Volume 91.6 fl 80.9-99.0 1 Mean Corpuscular HGB 29.2 pg 25.9-32.7 1 Mean Corpuscular HGB Conc 31.9 g/dL 30.8-34.3 1 Platelet Count 262 K/uL 150-400 1 Red Cell Distri Width %CV 14.3 % 11.7-14.4 1 Mean Platelet Volume 10.9 fL 8.9-12.4 1 Basic Metabolic Panel 07/30/2017 Glucose 118 mg/dL High 74-106 1 BUN 10 mg/dL 7-18 1 Creatinine 1.0 mg/dL 0.6-1.3 1 Glom Filtration Rate, Estimate >60 mL/min >60 1 If >60 mL/min >60 1, 2 BUN/Creat 10.0 ratio 1 Sodium 140 mmol/L 136-145 1 Potassium 3.8 mmol/L 3.5-5.1 1 Chloride 105 mmol/L 98-107 1 Carbon Dioxide 28 mmol/L 21-32 1 Anion Gap 7 mEq/L Low 8-16 1 Calcium 8.7 mg/dL 8.5-10.1 1 Laboratory test finding 07/30/2017 Magnesium 2.3 mg/dL 1.8-2.4 1 CBC 07/29/2017 White Blood Count 13.4 K/uL High 3.1-10.7 3 Red Blood Count 4.50 M/uL 3.90-5.40 3 Hemoglobin 13.1 gm/dL 11.6-15.8 3 Hematocrit 39.8 % 36.0-46.1 3 Mean Cell Volume 88.4 fl 80.9-99.0 3 Mean Corpuscular HGB 29.1 pg 25.9-32.7 3 Mean Corpuscular HGB Conc 32.9 g/dL 30.8-34.3 3 Platelet Count 247 K/uL 150-400 3 Red Cell Distri Width %CV 13.9 % 11.7-14.4 3 Mean Platelet Volume 10.2 fL 8.9-12.4 3 Basic Metabolic Panel 07/29/2017 Glucose 181 mg/dL High 74-106 3 BUN 10 mg/dL 7-18 3 Creatinine 0.8 mg/dL 0.6-1.3 3 Glom Filtration Rate, Estimate >60 mL/min >60 3 If >60 mL/min >60 3, 4 BUN/Creat 12.5 ratio 3 Sodium 138 mmol/L 136-145 3 Potassium 4.1 mmol/L 3.5-5.1 3 Chloride 106 mmol/L 98-107 3 Carbon Dioxide 24 mmol/L 21-32 3 Anion Gap 8 mEq/L 8-16 3 Calcium 8.4 mg/dL Low 8.5-10.1 3 1 ACUTE APPENDICITIS 2 Note: Persistent reduction for 3 months or more in an eGFR <60 mL/min/1.73 m2 defines CKD. Patients with eGFR values >/=60 mL/min/1.73 m2 may also have CKD if evidence of persistent proteinuria is present. The original MDRD equation for estimated GFR is not valid for patients less than 18 years of age. Additional information may be found at www.kdoqi.org. 3 SENT BY Jim ABRAHAM PAIN 4 Note: Persistent reduction for 3 months or more in an eGFR <60 mL/min/1.73 m2 defines CKD. Patients with eGFR values >/=60 mL/min/1.73 m2 may also have CKD if evidence of persistent proteinuria is present. The original MDRD equation for estimated GFR is not valid for patients less than 18 years of age. Additional information may be found at www.kdoqi.org. Procedures Date CPT Code Description Status 11/01/2014 89058 ECHO Transthoracic Inc Performance Continuous Completed Electrocardio Mon Encounters Type Date Location Provider CPT E/M Dx Office Visit 10/26/2014 1:49p [place] [id number] [phone] Plan of Care 08/10/2017 - Mason Batres MD,[id number] Acute appendicitis with localized peritonitisComments:now s/p laparoscopic appendectomy. doing well. RTC prn.
== END 2017-08-13 14:00 | disposition home or self-care (01) ==
LOC: UCCORT 12:21
DX: J20.9 Acute bronchitis, unspecified (principal); E78.5 Hyperlipidemia, unspecified
CPT/HCPCS: 93005; 99212; G0463

== ENCOUNTER 2017-10-12 12:03 | Emergency (ER) | payer OTHER ==
[2017-10-12 14:05] VITALS: BP 135/75
--- NOTE | 2017-10-12 14:06 | UC ---
Throat Pain/Nasal Sukhi HPI - HPI Summary HPI Summary: 52 y/o female presents to the urgent care c/o sore throat since Wednesday. Pt reports states symptoms started with nasal congestion, GILLETTE, fever, dry cough and chills. She has been taking Mucinex and albuterol inhaler and symptoms have improved, except for sore throat. Pain is 5/10 with swallowing. Pt denies SOB, chest pain N/V/D. 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 - History of Current Complaint Chief Complaint: UCGeneralIllness Stated Complaint: SORE THROAT Time Seen by Provider: 10/12/17 14:02 Hx Obtained From: Patient Hx Last Menstrual Period: n/a ?: No Onset/Duration: Gradual Onset, Lasting Days - 5 days, Still Present, Worse Since - yesterday Severity: Moderate Pain Intensity: 5 Pain Scale Used: 0-10 Numeric Cough: Nonproductive - dry Associated Signs & Symptoms: Positive: Nasal Discharge. Negative: Fever - Epiglottits Risk Factors Epiglottis Risk Factors: Negative - Allergies/Home Medications Allergies/Adverse Reactions: Allergies Allergy/AdvReac Type Severity Reaction Status Date / Time MS Vitamin K [Vitamin K] Allergy convulsions Verified 10/12/17 13:55 PMH/Surg Hx/FS Hx/Imm Hx Previously Healthy: Yes Endocrine History: Dyslipidemia - Surgical History Surgical History: Yes Surgery Procedure, Year, and Place: Appedectomy, 07/28/17, [place]; uterine ablation, left carpal and cupal tunnel releases-last surgery was 08/2015; DVT left leg post 1992- clotting factors were normal. bicep repair. clavicle reduction. appy 07/2017 - Family History Known Family History: Positive: Cardiac Disease, Hypertension, Diabetes, Other - [place] - Social History Occupation: Employed Full-time Lives: With Family Alcohol Use: Weekly Alcohol Amount: 1-2 Substance Use Type: None Smoking Status (MU): Never Smoked Tobacco Have You Smoked in the Last Year: No - Immunization History Most Recent Influenza Vaccination: none Review of Systems Constitutional: Negative Skin: Negative Eyes: Negative ENT: Sore Throat, Nasal Discharge Respiratory: Cough - dry Cardiovascular: Negative Gastrointestinal: Negative Genitourinary: Negative Motor: Negative Neurovascular: Negative Musculoskeletal: Negative Neurological: Negative Psychological: Negative Is Patient Immunocompromised?: No All Other Systems Reviewed And Are Negative: Yes Physical Exam Triage Information Reviewed: Yes Vital Signs: Initial Vital Signs Temp 98.4 F 10/12/17 13:53 Pulse 82 10/12/17 13:53 Resp 16 10/12/17 13:53 BP 135/75 10/12/17 13:53 Pulse Ox 99 10/12/17 13:53 - Additional Comments VITAL SIGNS: Reviewed. GENERAL: Patient is a well developed and nourished female who is sitting comfortable in the examining table. Patient is not in any acute respiratory distress. HEAD AND FACE: No signs of trauma. No ecchymosis, hematomas or skull depressions. No sinus tenderness. edematous erythematous nasal mucosa with yellowish discharge, EYES: PERRLA, EOMI x 2, No injected conjunctiva, clear watery eyes, no nystagmus. No photophobia. EARS: Hearing grossly intact. Ear canals and tympanic membranes are within normal limits. MOUTH: Positive pharynx with erythema, no exudates,no palatal petechiae. no B/L tonsillar enlargement Uvula in midline. NECK: Supple, trachea is midline, Positive anterior cervical lymphadenopathy, no JVD, no carotid bruit, no c-spine tenderness, neck with full ROM. No meningeal signs, no Kernig's or brudzinskis signs. CHEST: Symmetric, no tenderness at palpation LUNGS: Clear to auscultation bilaterally. No wheezing or crackles. CVS: Regular rate and rhythm, S1 and S2 present, no murmurs or gallops appreciated. ABDOMEN: Soft, non-tender. No signs of distention. No rebound no guarding, and no masses palpated. Bowel sounds are normal. EXTREMITIES: FROM in all major joints, no edema, no cyanosis or clubbing. NEURO: Alert and oriented x 3. No acute neurological deficits. Speech is normal and follows commands. SKIN: Dry and warm Throat Pain/Nasal Course/Dx - Course Course Of Treatment: 52 y/o female presents to the urgent care c/o sore throat since Wednesday10/08/2017. Pt reports states symptoms started with nasal congestion, GILLETTE, fever, dry cough and chills. She has been taking Mucinex and albuterol inhaler and symptoms have improved, except for sore throat. Pain is 5/ 10 with swallowing. Pt denies SOB, chest pain N/V/D. 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 Hx obtained. Pt with pharyngitis on examination. Rapid strep ordered, result: negative.Pt RX ibuprofen PO and Tessalon tabs PO to alleviate symptoms. Advised on hand washing and wear a mask to avoid spreading. Pt advised to rest, increase fluid intake, eat well and avoid strenuous exercise. If symptoms do not improve or worsen advised to return to the urgent care or f/u with her PCP for further evaluation and treatment. Pt understood and agreed with plan of care. - Differential Dx/Diagnosis Differential Diagnosis/HQI/PQRI: Influenza, Laryngitis, Mononucleosis, Pharyngitis, Sinusitis, Tonsillitis, URI Provider Diagnoses: 1- Viral syndrome. 2-Cough Discharge - Discharge Plan Condition: Stable Disposition: HOME Prescriptions: Benzonatate CAP* [Tessalon 100 MG CAP*] 100 mg PO TID #15 cap Ibuprofen TAB* [Motrin TAB* 800 MG] 800 mg PO Q6H PRN #20 tab PRN Reason: Sore Throat Patient Education Materials: Viral Syndrome (ED) Forms: *Work Release Referrals: Rick Zaragoza MD [Primary Care Provider] - 3 Days Additional Instructions: 1-Please continue taking Ibuprofen PO q6-8hrs prn as instructed after meals to alleviate fever, and sore throat. Increase fluid intake, eat well, rest and avoid strenuous exercise 2- Take Tessalon tabs PO to alleviate cough. Continue with albuterol inhaler. Continue with flonase and use saline drops to clear your sinuses 3-If symptoms do not improve or worsen please return to the urgent care or f/u with your PCP in 2 days for further evaluation and treatment.
== END 2017-10-12 14:48 | disposition home or self-care (01) ==
LOC: UCCORT 12:03
DX: B34.9 Viral infection, unspecified (principal); R05 Cough; E78.5 Hyperlipidemia, unspecified
CPT/HCPCS: 87651; 99212; G0463

== ENCOUNTER 2019-10-01 09:20 | Emergency (ER) | payer OTHER ==
--- OUTSIDE RECORDS SUMMARY | 2019-10-01 10:26 | XMS REPORT | Continuity of Care Document ---
:1965 External Reference #:[id number] Author Name Ronda Nicholson PA Address [address] [place] [address] Care Team Providers Name Role Phone Timo Stephens MD - Otolaryngology Care Team Information Resident Services Coordinator Lang Jackson MD - Obstetrics & Care Team Information Resident Services Coordinator Gynecology Sera Alicea Care Team Information Resident Services Coordinator [phone] Martin Leonardo - Pulmonary Disease Care Team Information Resident Services Coordinator [facility] - Allergy & Care Team Information Resident Services Coordinator Immunology Sol Ricks MD - Care Team Information Resident Services Coordinator [phone] Endocrinology, Diabetes & Metabolism Guerrero Gill MD Care Team Information Resident Services Coordinator [phone] Zuly Stewart Care Team Information Resident Services Coordinator [phone] [facility] Neurology Care Team Information Resident Services Coordinator [phone] [facility] Care Team Information Resident Services Coordinator [phone] Dominique Collins MD - Neurology Care Team Information Resident Services Coordinator Boom Peng MD - Otolaryngology Care Team Information Resident Services Coordinator [phone] Problems Active Problems Provider Date Vitamin D deficiency Rick Zaragoza MD Onset: 01/24/2014 Family history of diabetes mellitus Rick Zaragoza MD Onset: 06/20/2013 Benign neoplasm of colon Rick Zaragoza MD Onset: 06/20/2013 Obstructive sleep apnea syndrome Rick Zaragoza MD Onset: 12/19/2012 Postmenopausal state Rick Zaragoza MD Onset: 12/18/2011 Acne Rick Zaragoza MD Onset: 12/13/2009 Cervical spondylosis without myelopathy Rick Zaragoza MD Onset: 2006 Allergic rhinitis Rick Zaragoza MD Onset: 08/18/2005 Pure hypercholesterolemia Rick Zaragoza MD Onset: 08/18/2005 Moderate persistent asthma Rick Zaragoza MD Onset: 12/22/2017 Myasthenia gravis Rick Zaragoza MD Onset: 03/21/2019 Social History Type Date Description Comments Sex Unknown ETOH Use Occasionally consumes alcohol Tobacco Use Start: Unknown Patient has never smoked Allergies, Adverse Reactions, Alerts Active Allergies Reaction Severity Comments Date Vitamin K 10/02/2014 Environmental 06/22/2018 Milk Fat, Cow 06/22/2018 Oranges 06/22/2018 Medications Active Medications SIG Qnty Indications Ordering Date Provider Amoxicillin/Clavulanate 1 by mouth twice 28tabs J01.90 Gunnar Heath, Potassium a day x 14 days DO 875-125mg Tablets Prednisone 4 tablets by 21tabs J01.90 Gunnar Heath, 08/31/2019 10mg Tablets mouth x 2 days, DO then 3 tablets x 2 days, then 2 tablets x 2 days, then 1 tablet until finished Albuterol Sulfate HFA 2 puffs every 3 8gm J45.40 Digiovanna, 08/27/2019 hours as needed MD Rick 108(90Base) mcg/Act for cough or sob Aerosol Cyclobenzaprine HCL 1/2-2 by mouth 30tabs M54.5 Digiovanna, 06/06/2019 5mg every 8 hours as Mary, HAND PLEATER Tablets needed for pain Coq10 Maximum Strength 1 by mouth every Digiovanna, 12/10/2018 day MD Rick 400mg Capsules Nabumetone take one tablet 60tabs M25.512 Digiovanna, 12/10/2018 500mg Tablets by mouth twice a MD Rick day with food as needed for arm Mycophenolate Mofetil 2 Tabs bid G70.00 Ciafaloni, 08/26/2018 500mg MD Dominique Tablets Methylphenidate HCL 2 pills each in 90tabs G47.33 Mila, 08/26/2016 5mg the morning, and MD Rick Tablets 1 pill each afternoon if needed for fatigue Flonase 1 spray per 1Bottle J30.9 Mila, 08/25/2013 50mcg/Act nostril twice a Mary, HAND PLEATER Suspension day as needed Atorvastatin Calcium take 1 tablet by 30tabs E78.00 Mila, 07/05/2012 10mg mouth every MD Rick Tablets evening Montelukast Sodium take 1 tablet by J30.9 Amaya Allergy 10mg mouth every and Asthma Tablets night at bedtime Gabapentin 1 by mouth 3 Ellis, 100mg Capsules times a day MD Kwasi Choline Unknown 648mg Capsules Levocetirizine 1 by mouth every J30.9 Unknown Dihydrochloride day 5mg Tablets Desloratadine 1 by mouth every J30.9 Unknown 5mg Tablets day Omeprazole 1 by mouth prn R05 Boom Peng MD 40mg Capsules DR Venlafaxine HCL ER 1 by mouth every F39 Unknown 75mg day Caps ER 24HR Vitamin D 1 by mouth every E55.9 Unknown 2000Unit Capsules day History Medications Prednisone 2x/day by mouth 10tabs R05 Mila, 08/18/2019 - 20mg for 5 days Mary, HAND PLEATER 08/23/2019 Tablets Amoxicillin/Clavula 1 by mouth every 28tabs J01.90 Mila, 08/08/2019 - raquel Potassium 12 hours for 14 Mary, HAND PLEATER 08/22/2019 days 875-125mg Tablets Amoxicillin 1 by mouth twice 20tabs J01.90 Tiesha Figueroa MD 07/25/2019 - 875mg a day for 10 days 08/04/2019 Tablets Shingrix administer 1units Z23 Mila, 07/25/2019 - shingrix (2 MD Rick 07/26/2019 50mcg/0.5ML doses, 2-6 months Suspension Rec apart) Amoxicillin 1 by mouth twice 20tabs J01.90 Tiesha Figueroa MD 06/29/2019 - 875mg a day for 10 days 07/09/2019 Tablets Amoxicillin 1 by mouth twice 14tabs J01.90 Digiovanna, 05/03/2019 - 875mg a day for 7 days MD Rick 05/10/2019 Tablets Amoxicillin 1 by mouth twice 20tabs J01.90 Digiovanna, 04/21/2019 - 875mg a day for 10 days MD Rick 05/01/2019 Tablets Medications Administered in Office Medication SIG Qnty Indications Ordering Provider Date PPD Injection Schedule, Nurses 07/18/2018 PPD Injection Schedule, Nurses 04/13/2017 Immunizations CPT Code Status Date Vaccine Reaction Lot # [id number] Given 06/06/2019 Pneumococcal 23 Immunization Im inj completed, Pt [id number] Adult Or Immunosuppressed tolerated well Patient 39527 Given 05/30/2019 Influenza Vac, Quadrivalent, Split, 0.5mL Dosage, Im Use Q2039 Given 08/26/2018 Flu Vaccine NOS 31422 Given 04/24/2014 Tetanus And Diptheria Toxoid 7 Years And Older Preserv Free 04561 Given 06/20/2013 Afluria Or Fluvirin Flu Vac Intramuscular 18337 Given 06/21/2009 Hepatitis B Vac Adolescent 2 Dose Schedule 18986 Given 01/10/2009 Hepatitis B Vac Adolescent 2 Dose Schedule 14551 Given 12/11/2008 Hepatitis B Vac Adolescent 2 Dose Schedule 40651 Given 09/13/2007 Tdap (Adacel) Ages 7 And CCHD...TDAP IN 2007 Above Only BUT UNSURE EXACT DATE 77804 Given 08/17/2005 Tetanus And Diptheria Toxoid 7 Years And Older Preserv Free Q2039 Refused 07/06/2018 Flu Vaccine NOS MIGHT GET AT PHARMACY 60246 Refused 08/27/2015 Influenza Virus DOESN'T PLAN TO GET THIS Vaccine,Quadrivalent,Split,Pre YEAR serv Free, 0.5mL,Im Vital Signs Date Vital Result Comment 08/31/2019 8:32am Body Temperature 97.6 F Weight 189.00 lb Heart Rate 76 /min BP Systolic 132 mmHg BP Diastolic 74 mmHg Respiratory Rate 18 /min Height 66 inches 5'6" O2 % BldC Oximetry 97 % ra BMI (Body Mass Index) 30.5 kg/m2 08/18/2019 3:20pm Body Temperature 99.4 F Weight 188.00 lb Heart Rate 91 /min BP Systolic 138 mmHg BP Diastolic 76 mmHg Respiratory Rate 18 /min Height 66 inches 5'6" O2 % BldC Oximetry 96 % BMI (Body Mass Index) 30.3 kg/m2 Results Test Acquired Date Facility Test Result H/L Range Note CBS 08/25/2019 [facility] White Blood 7.8 K/uL Normal 3.1-10.7 1 W/Automated (315)- - Count Diff Red Blood Count 5.45 M/uL High 3.90-5.40 Hemoglobin 15.5 gm/dL Normal 11.6-15.8 Hematocrit 47.3 % High 36.0-46.1 Mean Cell Volume 86.8 fl Normal 80.9-99.0 Mean Corpuscular HGB 28.4 pg Normal 25.9-32.7 Mean Corpuscular HGB Conc 32.8 g/dL Normal 30.8-34.3 Platelet Count 323 K/uL Normal 155-360 Red Cell Distri Width SD 42.0 fl Normal 36-47 Red Cell Distri Width %CV 13.4 % Normal 11.7-14.4 Mean Platelet Volume 10.3 fl Normal 8.9-12.4 Neut% 45.0 % Normal 40.4-72.8 Lymph % 43.0 % High 20.0-42.0 Hayes % 7.4 % Normal 4.3-13.2 Eo% 3.2 % Normal 0.0-6.6 Bas% 0.9 % Normal 0.0-1.1 Immature Grans 0.5 % Normal 0.0-5.0 NRBC % 0.0 /100WBC < 10/ 100 WBC Neut# 3.49 K/uL Normal 1.8-7.0 Lymph # 3.33 K/uL Normal 1.0-4.0 Hayes # 0.57 K/uL Normal 0.3-0.9 Eos # 0.25 K/uL Normal 0.0-0.5 Baso # 0.07 K/uL Normal 0.0-0.1 Immature Grans Absolute 0.04 K/uL NRBC # 0.00 K/uL Comprehensive 08/25/2019 [facility] Glucose 96 mg/dL Normal 74-106 Metabolic Panel (315)- - BUN 11 mg/dL Normal 7-18 Creatinine 0.9 mg/dL Normal 0.6-1.3 Glom Filtration Rate, Estimate >60 mL/min >60 If >60 mL/min >60 2 BUN/Creat 12.2 ratio Sodium 136 mmol/L Normal 136-145 Potassium 4.0 mmol/L Normal 3.5-5.1 Chloride 104 mmol/L Normal 98-107 Carbon Dioxide 27 mmol/L Normal 21-32 Anion Gap 5 mEq/L Low 8-16 Calcium 9.3 mg/dL Normal 8.5-10.1 Total Protein 7.4 g/dL Normal 6.4-8.2 Albumin 3.8 g/dL Normal 3.4-5.0 Globulin 3.6 g/dL Normal 1.9-4.3 Alb/Glob 1.1 ratio Bilirubin,Total 0.4 mg/dL Normal 0.2-1.0 Sgot/Ast 24 U/L Normal 15-37 SGPT/Alt 42 U/L Normal 12-78 Alkaline Phosphatase 111 U/L Normal 45-117 CBS W/Automated 06/21/2019 [facility] White Blood 9.0 K/ uL Normal 3.1-10.7 Diff (315)- - Count Red Blood Count 5.17 M/uL Normal 3.90-5.40 Hemoglobin 14.6 gm/dL Normal 11.6-15.8 Hematocrit 45.2 % Normal 36.0-46.1 Mean Cell Volume 87.4 fl Normal 80.9-99.0 Mean Corpuscular HGB 28.2 pg Normal 25.9-32.7 Mean Corpuscular HGB Conc 32.3 g/dL Normal 30.8-34.3 Platelet Count 265 K/uL Normal 155-360 Red Cell Distri Width SD 41.0 fl Normal 36-47 Red Cell Distri Width %CV 12.8 % Normal 11.7-14.4 Mean Platelet Volume 10.3 fl Normal 8.9-12.4 Neut% 62.9 % Normal 40.4-72.8 Lymph % 28.6 % Normal 20.0-42.0 Hayes % 5.3 % Normal 4.3-13.2 Eo% 2.3 % Normal 0.0-6.6 Bas% 0.7 % Normal 0.0-1.1 Immature Grans 0.2 % Normal 0.0-5.0 NRBC % 0.0 /100WBC < 10/ 100 WBC Neut# 5.66 K/uL Normal 1.8-7.0 Lymph # 2.57 K/uL Normal 1.0-4.0 Hayes # 0.48 K/uL Normal 0.3-0.9 Eos # 0.21 K/uL Normal 0.0-0.5 Baso # 0.06 K/uL Normal 0.0-0.1 Immature Grans Absolute 0.02 K/uL NRBC # 0.00 K/uL Comprehensive 06/21/2019 [facility] Glucose 102 mg/dL Normal 74-106 3 Metabolic Panel (315)- - BUN 11 mg/dL Normal 7-18 Creatinine 0.8 mg/dL Normal 0.6-1.3 Glom Filtration Rate, Estimate >60 mL/min >60 If >60 mL/min >60 4 BUN/Creat 13.7 ratio Sodium 140 mmol/L Normal 136-145 Potassium 3.9 mmol/L Normal 3.5-5.1 Chloride 104 mmol/L Normal 98-107 Carbon Dioxide 26 mmol/L Normal 21-32 Anion Gap 10 mEq/L Normal 8-16 Calcium 8.8 mg/dL Normal 8.5-10.1 Total Protein 7.5 g/dL Normal 6.4-8.2 Albumin 4.0 g/dL Normal 3.4-5.0 Globulin 3.5 g/dL Normal 1.9-4.3 Alb/Glob 1.1 ratio Bilirubin,Total 0.4 mg/dL Normal 0.2-1.0 Sgot/Ast 21 U/L Normal 15-37 SGPT/Alt 39 U/L Normal 12-78 Alkaline Phosphatase 112 U/L Normal 45-117 Comprehensive 04/21/2019 [facility] Glucose 107 mg/ dL High 74-106 5 Metabolic Panel Lab Dept [phone] BUN 9 mg/dL Normal 7-18 Creatinine 0.8 mg/dL Normal 0.6-1.3 Glom Filtration Rate, Estimate >60 mL/min >60 If >60 mL/min >60 6 BUN/Creat 11.2 ratio Sodium 140 mmol/L Normal 136-145 Potassium 4.0 mmol/L Normal 3.5-5.1 Chloride 108 mmol/L High 98-107 Carbon Dioxide 23 mmol/L Normal 21-32 Anion Gap 9 mEq/L Normal 8-16 Calcium 9.0 mg/dL Normal 8.5-10.1 Total Protein 7.4 g/dL Normal 6.4-8.2 Albumin 3.8 g/dL Normal 3.4-5.0 Globulin 3.6 g/dL Normal 1.9-4.3 Alb/Glob 1.1 ratio Bilirubin,Total 0.5 mg/dL Normal 0.2-1.0 Sgot/Ast 37 U/L Normal 15-37 SGPT/Alt 48 U/L Normal 12-78 Alkaline Phosphatase 112 U/L Normal 45-117 CBS W/Automated 04/21/2019 [facility] White 6.9 K/uL Normal 3.1-10.7 Diff Lab Dept Blood [phone] Count Red Blood Count 5.32 M/uL Normal 3.90-5.40 Hemoglobin 15.4 gm/dL Normal 11.6-15.8 Hematocrit 45.8 % Normal 36.0-46.1 Mean Cell Volume 86.1 fl Normal 80.9-99.0 Mean Corpuscular HGB 28.9 pg Normal 25.9-32.7 Mean Corpuscular HGB Conc 33.6 g/dL Normal 30.8-34.3 Platelet Count 276 K/uL Normal 155-360 Red Cell Distri Width SD 39.9 fl Normal 36-47 Red Cell Distri Width %CV 12.9 % Normal 11.7-14.4 Mean Platelet Volume 10.4 fl Normal 8.9-12.4 Neut% 54.8 % Normal 40.4-72.8 Lymph % 32.3 % Normal 20.0-42.0 Hayes % 7.3 % Normal 4.3-13.2 Eo% 3.9 % Normal 0.0-6.6 Bas% 1.3 % High 0.0-1.1 Immature Grans 0.4 % Normal 0.0-5.0 NRBC % 0.0 /100WBC < 10/ 100 WBC Neut# 3.76 K/uL Normal 1.8-7.0 Lymph # 2.22 K/uL Normal 1.0-4.0 Hayes # 0.50 K/uL Normal 0.3-0.9 Eos # 0.27 K/uL Normal 0.0-0.5 Baso # 0.09 K/uL Normal 0.0-0.1 Immature Grans Absolute 0.03 K/uL NRBC # 0.00 K/uL Lipid 04/21/2019 [facility] Cholesterol 207 mg/dL High <200 7 (315)- - Triglycerides 123 mg/dL <150 8 HDL Cholesterol 67 mg/dL >40 9 LDL-Cholesterol 115 mg/dL < 100 10 Laboratory 04/21/2019 [facility] Vitamin 35.8 30.0- 100.0 11 test finding (315)- - D,25-Hydroxy ng/mL CBC With Auto 03/18/2019 [facility] White Blood 7.0 K/uL Normal 3.1-10.7 12 Diff (315)- - Count Red Blood Count 5.02 M/uL Normal 3.90-5.40 Hemoglobin 14.8 gm/dL Normal 11.6-15.8 Hematocrit 43.6 % Normal 36.0-46.1 Mean Cell Volume 86.9 fl Normal 80.9-99.0 Mean Corpuscular HGB 29.5 pg Normal 25.9-32.7 Mean Corpuscular HGB Conc 33.9 g/dL Normal 30.8-34.3 Platelet Count 262 K/uL Normal 155-360 Red Cell Distri Width SD 42.0 fl Normal 36-47 Red Cell Distri Width %CV 13.4 % Normal 11.7-14.4 Mean Platelet Volume 10.5 fl Normal 8.9-12.4 Neut% 54.8 % Normal 40.4-72.8 Lymph % 33.6 % Normal 20.0-42.0 Hayes % 6.6 % Normal 4.3-13.2 Eo% 4.0 % Normal 0.0-6.6 Bas% 0.7 % Normal 0.0-1.1 Immature Grans 0.3 % Normal 0.0-5.0 NRBC % 0.0 /100WBC < 10/ 100 WBC Neut# 3.81 K/uL Normal 1.8-7.0 Lymph # 2.34 K/uL Normal 1.0-4.0 Hayes # 0.46 K/uL Normal 0.3-0.9 Eos # 0.28 K/uL Normal 0.0-0.5 Baso # 0.05 K/uL Normal 0.0-0.1 Immature Grans Absolute 0.02 K/uL NRBC # 0.00 K/uL Comprehensive 03/18/2019 [facility] Glucose 97 mg/dL Normal 74-106 Metabolic Panel (315)- - BUN 12 mg/dL Normal 7-18 Creatinine 0.7 mg/dL Normal 0.6-1.3 Glom Filtration Rate, Estimate >60 mL/min >60 If >60 mL/min >60 13 BUN/Creat 17.1 ratio Sodium 140 mmol/L Normal 136-145 Potassium 4.0 mmol/L Normal 3.5-5.1 Chloride 107 mmol/L Normal 98-107 Carbon Dioxide 28 mmol/L Normal 21-32 Anion Gap 5 mEq/L Low 8-16 Calcium 8.8 mg/dL Normal 8.5-10.1 Total Protein 7.5 g/dL Normal 6.4-8.2 Albumin 3.9 g/dL Normal 3.4-5.0 Globulin 3.6 g/dL Normal 1.9-4.3 Alb/Glob 1.1 ratio Bilirubin,Total 0.5 mg/dL Normal 0.2-1.0 Sgot/Ast 70 U/L High 15-37 SGPT/Alt 94 U/L High 12-78 Alkaline Phosphatase 131 U/L High 45-117 1 G70.00, Z74.642 2 Note: Persistent reduction for 3 months or more in an eGFR <60 mL/min/1.73 m2 defines CKD. Patients with eGFR values >/=60 mL/min/1.73 m2 may also have CKD if evidence of persistent proteinuria is present. The original MDRD equation for estimated GFR is not valid for patients less than 18 years of age. Additional information may be found at www.kdoqi.org. 3 G70.00, Z88.864 CC: DR GONZALEZ (FAXED) 4 Note: Persistent reduction for 3 months or more in an eGFR <60 mL/min/1.73 m2 defines CKD. Patients with eGFR values >/=60 mL/min/1.73 m2 may also have CKD if evidence of persistent proteinuria is present. The original MDRD equation for estimated GFR is not valid for patients less than 18 years of age. Additional information may be found at www.kdoqi.org. 5 U47.333, G70.00, (E78.00, E55.9) 6 Note: Persistent reduction for 3 months or more in an eGFR <60 mL/min/1.73 m2 defines CKD. Patients with eGFR values >/=60 mL/min/1.73 m2 may also have CKD if evidence of persistent proteinuria is present. The original MDRD equation for estimated GFR is not valid for patients less than 18 years of age. Additional information may be found at www.kdoqi.org. 7 Reference Guidelines*: Desirable: ........... < 200 mg/dL Borderline High: ..... 200-239 mg/dL High: ................ >= 240 mg/dL * The National Cholesterol Education Program (NCEP) 8 Reference Guidelines*: Normal: ............. < 150 mg/dL Borderline High: .... 150-199 mg/dL High: ............... 200-499 mg/dL Very High: .......... > 500 mg/dL * Source: National Cholesterol Education Program (NCEP) 9 Reference Guidelines*: Low HDL: ..... < 40 mg/dL Normal: ..... 40-60 mg/dL Desirable: ... > 60 mg/dL *The National Cholesterol Education Program(NCEP) 10 Reference Guidelines*: Optimal:........... <100 mg/dL Near Optimal....... 100-129 mg/dL Borderline High.... 130-159 mg/dL High............... 160-189 mg/dL Very High.......... >=190 mg/dL * Source: National Cholesterol Education Program (NCEP) 11 Vitamin D deficiency has been defined by the [place] of [employer] and an Endocrine Society practice guideline as a level of serum 25-OH vitamin D less than 20 ng/mL (1,2). The Endocrine Society went on to further define vitamin D insufficiency as a level between 21 and 29 ng/mL (2). 1. IOM ([place] of [employer]). 2010. Dietary reference intakes for calcium and D. [place]: The National Academies Press. 2. Keny MF, Mk NC, Evelyn GILLETTE, et al. Evaluation, treatment, and prevention of vitamin D deficiency: an Endocrine Society clinical practice guideline. JCEM. 2010; 96(7):1911-30. Performed at: RN - [facility] [address] [id number] Administrative Appeals Tribunal Member: Jacqueline Pearson MD, Phone: [phone] z79.899, (g70.00) 13 Note: Persistent reduction for 3 months or more in an eGFR <60 mL/min/1.73 m2 defines CKD. Patients with eGFR values >/=60 mL/min/1.73 m2 may also have CKD if evidence of persistent proteinuria is present. The original MDRD equation for estimated GFR is not valid for patients less than 18 years of age. Additional information may be found at www.kdoqi.org. Procedures Date Code Description Status 08/18/2019 76796 Measure Blood Oxygen Level Single Determination Completed 08/08/2019 66415 Measure Blood Oxygen Level Single Determination Completed 06/29/2019 95982 Measure Blood Oxygen Level Single Determination Completed 06/01/2019 51805651 Mammogram Completed 05/24/2019 [id number] Mammogram Completed 04/21/2019 14870 Measure Blood Oxygen Level Single Determination Completed 08/12/2018 77548090 Colonoscopy Completed 05/19/2018 [id number] Mammogram Completed Medical Devices Description No Information Available Encounters Type Date Location Provider Dx Diagnosis Office Visit 08/18/2019 Amrit Quinn01.Carla Acute sinusitis, 3:15p Mary HAND PLEATER unspecified R05 Cough Z68.30 Body mass index (BMI) 30.0-30.9, adult Office Visit 08/08/2019 11:30a Mary Quinn J01.90 Acute sinusitis, HAND PLEATER unspecified Z68.29 Body mass index (BMI) 29.0-29.9, adult Office Visit 07/25/2019 4:00p Janis Newsome NP J01.90 Acute sinusitis, unspecified Office Visit 06/29/2019 10:00a Janis Newsome NP J01.90 Acute sinusitis, unspecified R05 Cough H65.03 Acute serous otitis media, bilateral Office Visit 06/06/2019 2:45p [facility] Mary Zaragoza, HAND PLEATER M54.5 Low back pain L23.9 Allergic contact dermatitis, unspecified cause Z23 Encounter for immunization Office Visit 04/21/2019 9:15a [facility] Rick Zaragoza, J06.9 Acute upper MD respiratory infection, unspecified J01.90 Acute sinusitis, unspecified Z68.29 Body mass index (BMI) 29.0-29.9, adult Office Visit 03/21/2019 3:45p [facility] Rick Zaragoza, G70.00 Myasthenia gravis MD without (acute) exacerbation E78.00 Pure hypercholesterolemia, unspecified G47.33 Obstructive sleep apnea (adult) (pediatric) E55.9 Vitamin D deficiency, unspecified Z83.3 Family history of diabetes mellitus J30.9 Allergic rhinitis, unspecified M47.812 Spondylosis w/o myelopathy or radiculopathy, cervical region F39 Unspecified mood [affective] disorder Z68.28 Body mass index (BMI) 28.0-28.9, adult Assessments Date Code Description Provider 08/31/2019 J01.90 Acute sinusitis, unspecified Ronda Nicholson PA 08/31/2019 G70.00 Myasthenia gravis without (acute) Ronda Nicholson PA exacerbation 08/31/2019 Z68.30 Body mass index (BMI) 30.0-30.9, adult Ronda Nicholson PA 08/18/2019 J01.90 Acute sinusitis, unspecified Digiovanna, Mary, HAND PLEATER 08/18/2019 R05 Cough Digiovanna, Mary, HAND PLEATER 08/18/2019 Z68.30 Body mass index (BMI) 30.0-30.9, adult Digiovanna, Mary, HAND PLEATER 08/08/2019 J01.90 Acute sinusitis, unspecified Digiovanna, Mary, HAND PLEATER 08/08/2019 Z68.29 Body mass index (BMI) 29.0-29.9, adult Digiovanna, Mary, HAND PLEATER 07/25/2019 J01.90 Acute sinusitis, unspecified Janis Benitez NP 06/29/2019 J01.90 Acute sinusitis, unspecified Janis Benitez, HAND PLEATER 06/29/2019 R05 Cough Janis Benitez, HAND PLEATER 06/29/2019 H65.03 Acute serous otitis media, bilateral Janis Benitez, HAND PLEATER 06/06/2019 M54.5 Low back pain Mary Zaragoza, HAND PLEATER 06/06/2019 L23.9 Allergic contact dermatitis, unspecified Kojo Zaragozaia, HAND PLEATER cause 06/06/2019 Z23 Encounter for immunization Mary Zaragoza, MAGEN 04/21/2019 J06.9 Acute upper respiratory infection, Rick Zaragoza MD unspecified 04/21/2019 J01.90 Acute sinusitis, unspecified Rick Zaragoza MD 04/21/2019 Z68.29 Body mass index (BMI) 29.0-29.9, adult Rick Zaragoza MD 03/21/2019 G70.00 Myasthenia gravis without (acute) Rick Zaragoza MD exacerbation 03/21/2019 E78.00 Pure hypercholesterolemia Rick Zaragoza MD 03/21/2019 G47.33 Obstructive sleep apnea syndrome Rick Zaragoza MD 03/21/2019 E55.9 Vitamin D deficiency Rick Zaragoza MD 03/21/2019 Z83.3 FH: Diabetes mellitus Rick Zaragoza MD 03/21/2019 J30.9 Allergic rhinitis Rick Zaragoza MD 03/21/2019 M47.812 Cervical spondylosis without myelopathy Rick Zaragoza MD 03/21/2019 F39 Unspecified mood [affective] disorder Rick Zaragoza MD 03/21/2019 Z68.28 Body mass index (BMI) 28.0-28.9, adult Rick Zaragoza MD Plan of Treatment Future Appointment(s):09/26/2019 3:45 pm - Rick Zaragoza MD at [facility]2018 - Ronda Nicholson PAJ01.90 Acute sinusitis, unspecifiedNew Medication: Amoxicillin/Clavulanate Potassium 875-125 mg - 1 by mouth twice a day x 14 daysPrednisone 10 mg - 4 tablets by mouth x 2 days, then 3 tablets x 2 days, then 2 tablets x 2 days, then 1 tablet until finishedComments:? recurrent vs persistent sinusitisWill start on longer course of augmentin and prednisone taperWellsend sinus culture and change treatment as indicatedContinue mucinex, fluticasone, ventolinCall withworsening/persisting symptomsFollow up:PrnG70.00 Myasthenia gravis without (acute) exacerbationComments: ImmunosuppressedCurrently looking for cspqkaourwrsG37.30 Body mass index (BMI) 30.0-30.9, adult Functional Status Description No Information Available Mental Status Description No Information Available Referrals Description No Information Available
--- OUTSIDE RECORDS SUMMARY | 2019-10-01 10:26 | XMS REPORT | Continuity of Care Document ---
:1965 External Reference #:[id number] Author Name Mary Zaragoza, FINANCE ADVISOR Address [address] [place] [address] Care Team Providers Name Role Phone Timo Stephens MD - Otolaryngology Care Team Information [place] Lang Jackson MD - Obstetrics & Care Team Information [place] Gynecology Sera [place] Care Team Information [place] [phone] Martin Leonardo - Pulmonary Disease Care Team Information [place] [facility] - Allergy & Care Team Information [place] [phone] Immunology Sol Ricks MD - Care Team Information [place] [phone] Endocrinology, Diabetes & Metabolism Guerrero Gill MD Care Team Information [place] [phone] Zuly Stewart Care Team Information [place] [phone] [facility] Neurology Care Team Information [place] [facility] Care Team Information [place] [phone] Dominique Collins MD - Neurology Care Team Information [place] [phone] Boom Peng MD - Otolaryngology Care Team Information [place] Problems Active Problems Provider Date Vitamin D [...] Medications SIG Qnty Indications Ordering Date Provider Prednisone 2x/day by mouth 10tabs R05 Digiovanna, 08/18/2019 20mg Tablets for 5 days Mary, FINANCE ADVISOR Amoxicillin/Clavulanate 1 by mouth every 28tabs J01.90 Digiovanna, 2018 Potassium 12 hours for 14 Mary, FINANCE ADVISOR 875-125mg Tablets days Cyclobenzaprine HCL 1/2-2 by mouth 30tabs M54.5 Digiovanna, 06/06/2019 5mg every 8 hours as Mary, FINANCE ADVISOR Tablets needed for pain Coq10 Maximum Strength 1 by mouth every Digiovanna, 12/10/2018 day MD Rick 400mg Capsules Nabumetone take one tablet 60tabs M25.512 Digiovanna, 12/10/2018 500mg Tablets by mouth twice a MD Rick day with food as needed for arm Mycophenolate Mofetil 2 Tabs bid G70.00 Ciafaloni, 08/26/2018 500mg MD Dominique Tablets Methylphenidate HCL 2 pills each in 90tabs G47.33 Digiovanna, 08/26/2016 5mg the morning, and MD Rick Tablets 1 pill each afternoon if needed for fatigue Ventolin HFA 2 puffs every 3 8gm J45.40 Digiovanna, 08/27/2015 108(90Base) hours as needed MD Rick mcg/Act Aerosol for cough or sob Flonase 1 spray per 1Bottle J30.9 Digiovanna, 08/25/2013 50mcg/Act nostril twice a Mary, FINANCE ADVISOR Suspension day as needed Atorvastatin Calcium take 1 tablet by 30tabs E78.00 Digiovanna, 07/05/2012 10mg mouth every MD Rick Tablets [...] day Omeprazole 1 by mouth prn R05 Bomo Peng MD 40mg Capsules DR Venlafaxine HCL ER 1 by mouth every F39 Unknown 75mg day Caps ER 24HR Vitamin D 1 by mouth every E55.9 Unknown 2000Unit Capsules day History Medications Amoxicillin 1 by mouth twice a 20tabs J01.90 Tiesha Figueroa, 07/25/2019 - 875mg day for 10 days 08/04/2019 Tablets Shingrix administer 1units Z23 Digiovanna, 07/25/2019 - shingrix (2 doses, MD Rick 07/26/2019 50mcg/0.5ML 2-6 months apart) Suspension Rec Amoxicillin 1 by mouth twice a 20tabs J01.90 Tiesha Figueroa, 06/29/2019 - 875mg day for 10 days 07/09/2019 Tablets Amoxicillin 1 by mouth twice a 14tabs J01.90 Abdulaziziovanna, 05/03/2019 - 875mg day for 7 days MD Rick 05/10/2019 Tablets Amoxicillin 1 by mouth twice a 20tabs J01.90 Mila, 04/21/2019 - 875mg day for 10 days MD Rick 05/01/2019 Tablets Cefdinir 1 tablet twice 28caps J01.90 Gunnar Heath, 02/23/2019 - 300mg daily for 14 days DO 03/09/2019 Capsules Medications Administered in Office Medication SIG Qnty Indications Ordering Provider Date PPD Injection Schedule, Nurses 07/18/2018 PPD Injection Schedule, Nurses 04/13/2017 Immunizations CPT Code Status Date Vaccine Reaction Lot # [id number] Given 06/06/2019 Pneumococcal 23 Immunization Im inj completed, Pt [id number] Adult Or Immunosuppressed tolerated well Patient 85835 Given 05/30/2019 Influenza Vac, Quadrivalent, Split, 0.5mL Dosage, Im Use [id number] Given 08/26/2018 Flu Vaccine NOS 41378 Given 04/24/2014 Tetanus And Diptheria Toxoid 7 Years And Older Preserv Free 18240 Given 06/20/2013 Afluria Or Fluvirin Flu Vac Intramuscular 82918 Given 06/21/2009 Hepatitis B Vac Adolescent 2 Dose Schedule 39398 Given 01/10/2009 Hepatitis B Vac Adolescent 2 Dose Schedule 52983 Given 12/11/2008 Hepatitis B Vac Adolescent 2 Dose Schedule 08361 Given 09/13/2007 Tdap (Adacel) Ages 7 And CCHD...TDAP IN 2007 Above Only BUT UNSURE EXACT DATE 06654 Given 08/17/2005 Tetanus And Diptheria Toxoid 7 Years And Older Preserv Free Q2039 Refused 07/06/2018 Flu Vaccine NOS MIGHT GET AT PHARMACY 51250 Refused 08/27/2015 Influenza Virus DOESN'T PLAN TO GET THIS Vaccine,Quadrivalent,Split,Pre YEAR serv Free, 0.5mL,Im Vital Signs Date Vital Result Comment 08/18/2019 3:20pm Body Temperature 99.4 F Weight 188.00 lb Heart Rate 91 /min BP Systolic 138 mmHg BP Diastolic 76 mmHg Respiratory Rate 18 /min Height 66 inches 5'6" O2 % BldC Oximetry 96 % BMI (Body Mass Index) 30.3 kg/m2 08/08/2019 11:37am Body Temperature 99.4 F tympanic Weight 185.00 lb Heart Rate 80 /min BP Systolic 114 mmHg BP Diastolic 74 mmHg Respiratory Rate 16 /min Height 66 inches 5'6" O2 % BldC Oximetry 94 % Room Air BMI (Body Mass Index) 29.9 kg/m2 Results Test Acquired Date Facility Test Result H/L Range Note CBS 06/21/2019 [facility] White Blood 9.0 K/uL Normal 3.1-10.7 1 W/Automated (315)- - Count Diff Red Blood Count 5.17 M/uL Normal 3.90-5.40 [...] 40.4-72.8 Lymph % 28.6 % Normal 20.0-42.0 [place] % 5.3 % Normal 4.3-13.2 Eo% 2.3 % Normal 0.0-6.6 Bas% 0.7 % Normal 0.0-1.1 Immature Grans 0.2 % Normal 0.0-5.0 NRBC % 0.0 /100WBC < 10/ 100 WBC Neut# 5.66 K/uL Normal 1.8-7.0 Lymph # 2.57 K/uL Normal 1.0-4.0 [place] # 0.48 K/uL Normal 0.3-0.9 Eos # 0.21 K/uL Normal 0.0-0.5 Baso # 0.06 K/uL Normal 0.0-0.1 Immature Grans Absolute 0.02 K/uL NRBC # 0.00 K/uL Comprehensive 06/21/2019 [facility] Glucose 102 mg/dL Normal 74-106 2 Metabolic Panel (315)- - BUN 11 mg/dL Normal 7-18 Creatinine 0.8 mg/dL Normal 0.6-1.3 Glom Filtration Rate, Estimate >60 mL/min >60 If >60 mL/min >60 3 BUN/Creat 13.7 ratio Sodium 140 mmol/L Normal [...] Hospital Glucose 107 mg/ dL High 74-106 4 Metabolic Panel Lab Dept [phone] BUN 9 mg/dL Normal 7-18 Creatinine 0.8 mg/dL Normal 0.6-1.3 Glom Filtration Rate, Estimate >60 mL/min >60 If >60 mL/min >60 5 BUN/Creat 11.2 ratio Sodium 140 mmol/L Normal [...] K/uL Normal 3.1-10.7 Diff Lab Dept Blood [phone] Count Red Blood Count 5.32 M/uL Normal [...] 40.4-72.8 Lymph % 32.3 % Normal 20.0-42.0 [place] % 7.3 % Normal 4.3-13.2 Eo% 3.9 % Normal 0.0-6.6 Bas% 1.3 % High 0.0-1.1 Immature Grans 0.4 % Normal 0.0-5.0 NRBC % 0.0 /100WBC < 10/ 100 WBC Neut# 3.76 K/uL Normal 1.8-7.0 Lymph # 2.22 K/uL Normal 1.0-4.0 [place] # 0.50 K/uL Normal 0.3-0.9 Eos # 0.27 K/uL Normal 0.0-0.5 Baso # 0.09 K/uL Normal 0.0-0.1 Immature Grans Absolute 0.03 K/uL NRBC # 0.00 K/uL Lipid 04/21/2019 [facility] Cholesterol 207 mg/dL High <200 6 (315)- - Triglycerides 123 mg/dL <150 7 HDL Cholesterol 67 mg/dL >40 8 LDL-Cholesterol 115 mg/dL < 100 9 Laboratory 04/21/2019 [facility] Vitamin 35.8 30.0- 100.0 10 test finding (315)- - D,25-Hydroxy ng/mL CBC With Auto 03/18/2019 [facility] White Blood 7.0 K/uL Normal 3.1-10.7 11 Diff (315)- - Count Red Blood Count [...] 40.4-72.8 Lymph % 33.6 % Normal 20.0-42.0 [place] % 6.6 % Normal 4.3-13.2 Eo% 4.0 % Normal 0.0-6.6 Bas% 0.7 % Normal 0.0-1.1 Immature Grans 0.3 % Normal 0.0-5.0 NRBC % 0.0 /100WBC < 10/ 100 WBC Neut# 3.81 K/uL Normal 1.8-7.0 Lymph # 2.34 K/uL Normal 1.0-4.0 [place] # 0.46 K/uL Normal 0.3-0.9 Eos # 0.28 K/uL Normal 0.0-0.5 Baso # 0.05 K/uL Normal 0.0-0.1 Immature Grans Absolute 0.02 K/uL NRBC # 0.00 K/uL [facility] 03/18/2019 [facility] Glucose 97 mg/dL Normal 74-106 Metabolic Panel (315)- - BUN 12 mg/dL Normal 7-18 Creatinine 0.7 mg/dL Normal 0.6-1.3 Glom Filtration Rate, Estimate >60 mL/min >60 If >60 mL/min >60 12 BUN/Creat 17.1 ratio Sodium 140 mmol/L Normal [...] Phosphatase 131 U/L High 45-117 1 G70.00, Z79.899 2 G70.00, Z79.899 CC: DR GONZALEZ (FAXED) 3 Note: Persistent reduction for 3 months or more in an eGFR <60 mL/min/1.73 m2 defines CKD. Patients with eGFR values >/=60 mL/min/1.73 m2 may also have CKD if evidence of persistent proteinuria is present. The original MDRD equation for estimated GFR is not valid for patients less than 18 years of age. Additional information may be found at www.kdoqi.org. 4 Z79.899, G70.00, (E78.00, E55.9) 5 Note: Persistent reduction for 3 months or more in an eGFR <60 mL/min/1.73 m2 defines CKD. Patients with eGFR values >/=60 mL/min/1.73 m2 may also have CKD if evidence of persistent proteinuria is present. The original MDRD equation for estimated GFR is not valid for patients less than 18 years of age. Additional information may be found at www.kdoqi.org. 6 Reference Guidelines*: Desirable: ........... < 200 mg/dL Borderline High: ..... 200-239 mg/dL High: ................ >= 240 mg/dL * The National Cholesterol Education Program (NCEP) 7 Reference Guidelines*: Normal: ............. < 150 mg/dL Borderline High: .... 150-199 mg/dL High: ............... 200-499 mg/dL Very High: .......... > 500 mg/dL * Source: National Cholesterol Education Program (NCEP) 8 Reference Guidelines*: Low HDL: ..... < 40 mg/dL Normal: ..... 40-60 mg/dL Desirable: ... > 60 mg/dL *The National Cholesterol Education Program(NCEP) 9 Reference Guidelines*: Optimal:........... <100 mg/dL Near Optimal....... 100-129 mg/dL Borderline High.... 130-159 mg/dL High............... 160-189 mg/dL Very High.......... >=190 mg/dL * Source: National Cholesterol Education Program (NCEP) 10 Vitamin D deficiency has been defined by the [place] of [employer] and an Endocrine Society practice guideline as a level of serum 25-OH vitamin D less than 20 ng/mL (1,2). The Endocrine Society went on to further define vitamin D insufficiency as a level between 21 and 29 ng/mL (2). 1. IOM ([place] [employer]). 2010. Dietary reference intakes for calcium and D. [place]: The National Academies Press. 2. Keny MF, Mk PETERSON, Evelyn GILLETTE, et al. Evaluation, treatment, and prevention of vitamin D deficiency: an Endocrine Society clinical practice guideline. JCEM. 2010; 96(7):1911-30. Performed at: RN - [facility] [address] [id number] [place]izzer: Jacqueline Pearson MD, Phone: [phone] 11 P75.936, (W99.78) 65 Note: Persistent reduction for 3 months or [...] www.kdoqi.org. Procedures Date Code Description Status 08/18/2019 15693 Measure Blood Oxygen Level Single Determination Completed 08/08/2019 75145 Measure Blood Oxygen Level Single Determination Completed 06/29/2019 00950 Measure Blood Oxygen Level Single Determination Completed 06/01/2019 [id number] Mammogram Completed 05/24/2019 [id number] Mammogram Completed 04/21/2019 31983 Measure Blood Oxygen Level Single Determination Completed 08/12/2018 [id number] Colonoscopy Completed 05/19/2018 [id number] Mammogram Completed Medical Devices Description No Information Available Encounters Type Date Location Provider Dx Diagnosis Office Visit 08/18/2019 Amrit Quinn01.90 Acute sinusitis, 3:15p MAGEN Hernandez unspecified R05 Cough Z68.30 Body mass index (BMI) 30.0-30.9, adult Office Visit 07/25/2019 4:00p [facility] Janis Benitez NP J01.90 Acute sinusitis, unspecified Office Visit 06/29/2019 10:00a [facility] Janis Benitez NP J01.90 Acute sinusitis, unspecified R05 Cough H65.03 Acute serous otitis media, bilateral Office Visit 06/06/2019 2:45p Mary Quinn NP M54.5 Low back pain L23.9 Allergic contact dermatitis, unspecified cause Z23 Encounter for immunization Office Visit 04/21/2019 9:15a [facility] Rick Zaragoza J06.9 Acute upper MD respiratory infection, unspecified J01.90 Acute sinusitis, unspecified Z68.29 Body mass index (BMI) 29.0-29.9, adult Office Visit 03/21/2019 3:45p [facility] Rick Zaragoza, G70.00 Myasthenia gravis without (acute) exacerbation E78.00 Pure hypercholesterolemia, unspecified G47.33 Obstructive sleep apnea (adult) (pediatric) E55.9 Vitamin D deficiency, unspecified Z83.3 Family history of diabetes mellitus J30.9 Allergic rhinitis, unspecified M47.812 Spondylosis w/o myelopathy or radiculopathy, cervical region F39 Unspecified mood [affective] disorder Z68.28 Body mass index (BMI) 28.0-28.9, adult Office Visit 02/23/2019 1:45p [facility] Ronda Nicholson PA J01.90 Acute sinusitis, unspecified Z68.29 Body mass index (BMI) 29.0-29.9, adult Assessments Date Code Description Provider 08/18/2019 Amrit01.Carla Acute sinusitis, unspecified Mary Zaragoza NP 08/18/2019 R05 Cough Mary Zaragoza NP 08/18/2019 Z68.30 Body mass index (BMI) 30.0-30.9, adult Digiovanna, Mary, FINANCE ADVISOR 08/08/2019 J01.90 Acute sinusitis, unspecified Digiovanna, Mary, FINANCE ADVISOR 08/08/2019 Z68.29 Body mass index (BMI) 29.0-29.9, adult Digiovanna, Mary, FINANCE ADVISOR 07/25/2019 J01.90 Acute sinusitis, unspecified Strauf, Janis, FINANCE ADVISOR 06/29/2019 J01.90 Acute sinusitis, unspecified Strauf, Janis, FINANCE ADVISOR 06/29/2019 R05 Cough Strauf, Janis, FINANCE ADVISOR 06/29/2019 H65.03 Acute serous otitis media, bilateral StraufMitchellJanis, FINANCE ADVISOR 06/06/2019 M54.5 Low back pain DigiovanJeanette simmsMary, FINANCE ADVISOR 06/06/2019 L23.9 Allergic contact dermatitis, unspecified Digiovanna Mary, FINANCE ADVISOR cause 06/06/2019 Z23 Encounter for immunization DigioMary rosen, FINANCE ADVISOR 04/21/2019 J06.9 Acute upper respiratory infection, Rick [...] index (BMI) 28.0-28.9, adult Rick Zaragoza MD 02/23/2019 J01.90 Acute sinusitis, unspecified Ronda Nicholson PA 02/23/2019 Z68.29 Body mass index (BMI) 29.0-29.9, adult Ronda Nicholson PA Plan of Treatment Future Appointment(s):09/26/2019 3:45 pm - Rick Zaragoza MD at [facility]2018 - Mary Zaragoza NPJ01.90 Acute sinusitis, unspecifiedComments: Plenty of rest and fluids.Continue Mucinex 600mg every 12 hours until symptoms resolve.Tylenol 1000mg every 4-6 hours or ibuprofen 600-800mg every 6-8 hours with food for fever or GILLETTE.Humidifier may be helpful. Complete Augmentin with food.Recommend use of yogurt or probiotic daily while on antibiotic.Follow up: PRN for no improvement in 3-4 daysR05 CoughNew Medication:Prednisone 20 mg - 2x/ day by mouth for 5 daysNew Xrays:Chest Xray, 2 Views, Scheduled: Comments:Will check CXR and start Prednisone, take with foodZ68.30 Body mass index (BMI) 30.0-30.9, adultComments:Advised healthy well balanced diet with portion control.Recommend increased daily exercise. Increasewater intake. Functional Status Description No Information Available Mental Status Description No Information Available Referrals Description No Information Available
--- OUTSIDE RECORDS SUMMARY | 2019-10-01 10:26 | XMS REPORT | Continuity of Care Document ---
:1965 External Reference #:[id number] Author Name Mary Zaragoza, [employer] Address [address] [place] [address] Care Team Providers Name Role Phone Tmio Stephens MD - Otolaryngology Care Team Information Facility Assistant [phone] Lang Jackson MD - Obstetrics & Care Team Information Facility Assistant Gynecology Sera Alicea Care Team Information Facility Assistant [phone] Martin Leonardo - Pulmonary Disease Care Team Information Facility Assistant [facility] - Allergy & Care Team Information Facility Assistant [phone] Immunology Sol Ricks MD - Care Team Information Facility Assistant [phone] Endocrinology, Diabetes & Metabolism Guerrero Gill MD Care Team Information Facility Assistant [phone] Zuly Stewart Care Team Information Facility Assistant [phone] [facility] Neurology Care Team Information Facility Assistant [phone] [facility] Care Team Information Facility Assistant [phone] Dominique Collins MD - Neurology Care Team Information Facility Assistant Boom Peng MD - Otolaryngology Care Team Information Facility Assistant [phone] Problems Active Problems Provider Date Vitamin D [...] Ordering Date Provider Amoxicillin/Clavulanate 1 by mouth every 28tabs J01.90 Digiovanna, 2018 Potassium 12 hours for 14 Mary, [employer] 875-125mg Tablets days Cyclobenzaprine HCL 1/2-2 by mouth 30tabs M54.5 Digiovanna, 06/06/2019 5mg every 8 hours as Mary, [employer] Tablets needed for pain Coq10 Maximum Strength [...] sob Flonase 1 spray per 1Bottle J30.9 Abdulaziziovanna, 08/25/2013 50mcg/Act nostril twice a Mary, [employer] Suspension day as needed Atorvastatin Calcium take [...] 1units Z23 Mila, 07/25/2019 - shingrix (2 doses, MD Rick 07/26/2019 50mcg/0.5ML 2-6 months apart) Suspension Rec Amoxicillin 1 by mouth twice a 20tabs J01.90 Tiesha Figueroa, 06/29/2019 - 875mg day for 10 days 07/09/2019 Tablets Amoxicillin 1 by mouth twice a 14tabs J01.90 Mila, 05/03/2019 - 875mg day for 7 days [...] Code Status Date Vaccine Reaction Lot # [id number] Given 06/06/2019 Pneumococcal 23 Immunization Im inj completed, Pt [id number] Adult Or Immunosuppressed tolerated well Patient 15775 Given 05/30/2019 Influenza Vac, Quadrivalent, Split, 0.5mL Dosage, Im Use [id number] Given 08/26/2018 Flu Vaccine NOS 15565 Given 04/24/2014 Tetanus And Diptheria Toxoid 7 Years And Older Preserv Free 07356 Given 06/20/2013 Afluria Or Fluvirin Flu Vac Intramuscular 74791 Given 06/21/2009 Hepatitis B Vac Adolescent 2 Dose Schedule 19157 Given 01/10/2009 Hepatitis B Vac Adolescent 2 Dose Schedule 37055 Given 12/11/2008 Hepatitis B Vac Adolescent 2 Dose Schedule 10219 Given 09/13/2007 Tdap (Adacel) Ages 7 And CCHD...TDAP IN 2007 Above Only BUT UNSURE EXACT DATE 42093 Given 08/17/2005 Tetanus And Diptheria Toxoid 7 Years And Older Preserv Free Q2039 Refused 07/06/2018 Flu Vaccine NOS MIGHT GET AT PHARMACY 54511 Refused 08/27/2015 Influenza Virus DOESN'T PLAN TO GET THIS Vaccine,Quadrivalent,Split,Pre YEAR serv Free, 0.5mL,Im Vital Signs Date Vital Result Comment 08/08/2019 11:37am Body Temperature 99.4 F tympanic Weight 185.00 lb Heart Rate 80 /min BP Systolic 114 mmHg BP Diastolic 74 mmHg Respiratory Rate 16 /min Height 66 inches 5'6" O2 % BldC Oximetry 94 % Room Air BMI (Body Mass Index) 29.9 kg/m2 07/25/2019 3:59pm Body Temperature 98.6 F Weight 187.00 lb Heart Rate 74 /min BP Systolic 112 mmHg BP Diastolic 70 mmHg Respiratory Rate 16 /min Height 66 inches 5'6" O2 % BldC Oximetry 97 % BMI (Body Mass Index) 30.2 kg/m2 Results Test Acquired Date Facility Test Result H/L Range Note CBS 06/21/2019 [facility] White Blood 9.0 K/uL Normal [...] 40.4-72.8 Lymph % 28.6 % Normal 20.0-42.0 [place] % 5.3 % Normal 4.3-13.2 Eo% 2.3 % Normal 0.0-6.6 Bas% 0.7 % Normal 0.0-1.1 Immature Grans 0.2 % Normal 0.0-5.0 NRBC % 0.0 /100WBC < 10/ 100 WBC Neut# 5.66 K/uL Normal 1.8-7.0 Lymph # 2.57 K/uL Normal 1.0-4.0 [place] # 0.48 K/uL Normal 0.3-0.9 Eos # 0.21 K/uL Normal 0.0-0.5 Baso # 0.06 K/uL Normal 0.0-0.1 Immature Grans Absolute 0.02 K/uL NRBC # 0.00 K/uL Comprehensive 06/21/2019 [facility] Glucose 102 mg/dL Normal 74-106 [...] Phosphatase 112 U/L Normal 45-117 Comprehensive 04/21/2019 [facility] Glucose 107 mg/ dL High 74-106 4 Metabolic Panel Lab Dept [phone] BUN 9 mg/dL Normal 7-18 Creatinine 0.8 [...] 112 U/L Normal 45-117 CBS W/Automated 04/21/2019 [facility] White 6.9 K/uL Normal 3.1-10.7 Diff Lab Dept Blood [phone] Count Red Blood Count 5.32 M/uL Normal [...] 40.4-72.8 Lymph % 32.3 % Normal 20.0-42.0 [place] % 7.3 % Normal 4.3-13.2 Eo% 3.9 % Normal 0.0-6.6 Bas% 1.3 % High 0.0-1.1 Immature Grans 0.4 % Normal 0.0-5.0 NRBC % 0.0 /100WBC < 10/ 100 WBC Neut# 3.76 K/uL Normal 1.8-7.0 Lymph # 2.22 K/uL Normal 1.0-4.0 [place] # 0.50 K/uL Normal 0.3-0.9 Eos # 0.27 K/uL Normal 0.0-0.5 Baso # 0.09 K/uL Normal 0.0-0.1 Immature Grans Absolute 0.03 K/uL NRBC # 0.00 K/uL Lipid 04/21/2019 [facility] Cholesterol 207 mg/dL High <200 6 (315)- - Triglycerides 123 mg/dL <150 7 HDL Cholesterol 67 mg/dL >40 8 LDL-Cholesterol 115 mg/dL < 100 9 Laboratory 04/21/2019 [facility] Vitamin 35.8 30.0- 100.0 10 test finding (315)- - D,25-Hydroxy ng/mL CBC With Auto 03/18/2019 [facility] White Blood 7.0 K/uL Normal 3.1-10.7 11 [...] 40.4-72.8 Lymph % 33.6 % Normal 20.0-42.0 [place] % 6.6 % Normal 4.3-13.2 Eo% 4.0 % Normal 0.0-6.6 Bas% 0.7 % Normal 0.0-1.1 Immature Grans 0.3 % Normal 0.0-5.0 NRBC % 0.0 /100WBC < 10/ 100 WBC Neut# 3.81 K/uL Normal 1.8-7.0 Lymph # 2.34 K/uL Normal 1.0-4.0 [place] # 0.46 K/uL Normal 0.3-0.9 Eos # 0.28 K/uL Normal 0.0-0.5 Baso # 0.05 K/uL Normal 0.0-0.1 Immature Grans Absolute 0.02 K/uL NRBC # 0.00 K/uL [facility] 03/18/2019 [facility] Glucose 97 mg/dL Normal 74-106 [...] D deficiency has been defined by the [place] of Medicine and an Endocrine Society practice guideline as a level of serum 25-OH vitamin D less than 20 ng/mL (1,2). The Endocrine Society went on to further define vitamin D insufficiency as a level between 21 and 29 ng/mL (2). 1. IOM ([place] of Medicine). 2010. Dietary reference intakes for calcium and D. [place]: The National Academies Press. 2. Keny FREEMAN, Mk PETERSON, Evelyn GILLETTE, et al. Evaluation, treatment, and prevention of vitamin D deficiency: an Endocrine Society clinical practice guideline. JCEM. 2010; 96(7):1911-30. Performed at: RN - [facility] [address] [id number] Combine Operator: Jacqueline Pearson MD, Phone: [phone] z79.899, (g70.00) 12 Note: Persistent reduction for 3 months or [...] at [email or web address].org. Procedures Date Code Description Status 08/08/2019 44872 Measure Blood Oxygen Level Single Determination Completed 06/29/2019 61736 Measure Blood Oxygen Level Single Determination Completed 06/01/2019 62693898 Mammogram Completed 05/24/2019 [id number] Mammogram Completed 04/21/2019 51990 Measure Blood Oxygen Level Single Determination Completed 08/12/2018 [id number] Colonoscopy Completed 05/19/2018 [id number] Mammogram Completed Medical Devices Description No Information Available Encounters Type Date Location Provider Dx Diagnosis Office Visit 07/25/2019 Janis Newsome [employer] J01.90 Acute sinusitis, 4:00p unspecified Office Visit 06/29/2019 [facility] Janis Benitez NP J01.90 Acute sinusitis, 10:00a unspecified R05 Cough H65.03 Acute serous otitis media, bilateral Office Visit 06/06/2019 2:45p [facility] Mary Zaragoza NP M54.5 Low back pain L23.9 Allergic contact dermatitis, unspecified cause Z23 Encounter for immunization Office Visit 04/21/2019 9:15a [facility] Rick Zaragoza, J06.9 Acute upper MD respiratory infection, unspecified J01.90 Acute sinusitis, unspecified Z68.29 Body mass index (BMI) 29.0-29.9, adult Office Visit 03/21/2019 3:45p [facility] Rick Zaragoza, G70.00 Myasthenia gravis without (acute) exacerbation E78.00 Pure hypercholesterolemia, unspecified G47.33 Obstructive sleep apnea (adult) (pediatric) E55.9 Vitamin D deficiency, unspecified Z83.3 Family history of diabetes mellitus J30.9 Allergic rhinitis, unspecified M47.812 Spondylosis w/o myelopathy or radiculopathy, cervical region F39 Unspecified mood [affective] disorder Z68.28 Body mass index (BMI) 28.0-28.9, adult Office Visit 02/23/2019 1:45p [facility] Ronda Nicholson PA J01.90 Acute sinusitis, unspecified Z68.29 Body mass index (BMI) 29.0-29.9, adult Assessments Date Code Description Provider 08/08/2019 J01.90 Acute sinusitis, unspecified Mary Zaragoza, MAGEN 08/08/2019 Z68.29 Body mass index (BMI) 29.0-29.9, adult Mary Zaragoza NP 07/25/2019 J01.90 Acute sinusitis, unspecified Janis Benitez, MAGEN 06/29/2019 J01.90 Acute sinusitis, unspecified Janis Benitez, MAGEN 06/29/2019 R05 Cough Janis Benitez, MAGEN 06/29/2019 H65.03 Acute serous otitis media, bilateral Janis Benitez, MAGEN 06/06/2019 M54.5 Low back pain Mary Zaragoza, MAGEN 06/06/2019 L23.9 Allergic contact dermatitis, unspecified Mary Zaragoza, [employer] cause 06/06/2019 Z23 Encounter for immunization Mary Zaragoza NP 04/21/2019 J06.9 Acute upper respiratory infection, Rick [...] 3:45 pm - Rick Zaragoza MD at [facility]2018 - Mary Zaragoza NPJ01.90 Acute sinusitis, unspecifiedNew Medication :Amoxicillin/Clavulanate Potassium 875-125 mg - 1 by mouth every 12 hours for 14 daysComments:Plenty of rest and fluids.Recommend Mucinex 600mg every 12 hours until symptoms resolve.Tylenol 1000mg every 4-6 hours or ibuprofen 600- 800mg every 6-8 hours with food for fever or GILLETTE.Humidifier may behelpful. Take Augmentin with food.Recommend use of yogurt or probiotic daily while on antibiotic.Follow up:PRN for no improvement in 3-4 daysZ68.29 Body mass index ( BMI) 29.0-29.9, adult Functional Status Description No Information Available Mental Status Description No Information Available Referrals Description No Information Available
--- OUTSIDE RECORDS SUMMARY | 2019-10-01 10:26 | XMS REPORT | Continuity of Care Document ---
:1965 External Reference #:[id number] Author Name Kwasi Corral M.D. (transmitted by agent of provider Reta Morales) Address [address] [place] [address], [place] [address] Problems Active Problems Provider Date Sprain of shoulder and upper arm Sera Alicea MD Onset: 2016 Localized, secondary osteoarthritis of the Sera Alicea MD Onset: 2016 shoulder region Injury of shoulder region Sera Alicea MD Onset: 10/08/2016 Skin sensation disturbance Kwasi Corral M.D. Onset: 04/07/2019 Amnesia Kwasi Corral M.D. Onset: 04/07/2019 Chronic fatigue syndrome Kwasi Corral M.D. Onset: 04/07/2019 Myasthenia gravis Kwasi Corral M.D. Onset: 04/07/2019 Bicipital tenosynovitis Sera Alicea MD Onset: 04/27/2017 Social History Type Date Description Comments Sex Unknown ETOH Use Occasionally consumes alcohol Tobacco Use Start: Unknown Patient has never smoked Recreational Drug Use Never Used Drugs Smoking Status Reviewed: 08/24/19 Patient has never smoked Exercise Type/Frequency Exercises regularly Allergies, Adverse Reactions, Alerts Active Allergies Reaction Severity Comments Date Vitamin K 2016 Milk Fat, Cow 04/07/2019 [place] Oil 04/07/2019 Medications Active Medications SIG Qnty Indications Ordering Provider Date Gabapentin 1 capsule three 90caps G70.00 Kwasi Corral 04/07/2019 100mg Capsules times daily. M.D. Methylphenidate HCL take 2 tablets Unknown 5mg by mouth every Tablets morning and take 1 tablet In The AF... Atorvastatin Calcium Unknown 10mg Tablets Venlafaxine HCL ER Unknown 37.5mg Caps ER 24HR Naproxen Sodium 2 tablet with Unknown 220mg food by mouth Tablets twice a day as needed Cellcept take 2 tabs in Unknown 500mg Tablets the morning and 2 tabs in the evening for a total of 4 daily tabs daily ongoing Levocetirizine 1 every day as Unknown Dihydrochloride needed 5mg Tablets Desloratadine 1 by mouth every Unknown 5mg Tablets day as needed Vitamin D-1000 Maximum take one Unknown Strength capsule/tablet 1000Unit Tablets daily by mouth Choline 500 MG one daily Unknown Coq10 1 by mouth every Unknown 200mg Capsules day Albuterol Sulfate 1 unit dose via Unknown nebulizer every (2.5mg/3ML) 0.083% 4 hours as Nebulizer needed Montelukast Sodium 1 by mouth every Unknown 10mg day Tablets Black as directed Unknown Elderberry(Stubbs-Flowe daily r) 575mg Capsules Echinacea-Coley Seal daily as Unknown Complex directed Capsules Vitamin C 1 by mouth every Unknown 500mg Tablets day Medications Administered in Office Medication SIG Qnty Indications Ordering Provider Date Triamcinolone (Kenalog) Sera Alicea MD 07/01/2017 Injection Triamcinolone (Kenalog) Sera Alicea MD 2016 Injection Immunizations Description No Information Available Vital Signs Date Vital Result Comment 08/24/2019 3:22pm Height 67 inches 5'7" Weight 183.00 lb Heart Rate 72 /min BP Systolic 134 mmHg BP Diastolic 92 mmHg BMI (Body Mass Index) 28.7 kg/m2 05/30/2019 12:01pm Height 67 inches 5'7" Weight 182.00 lb Heart Rate 105 /min BP Systolic 128 mmHg BP Diastolic 78 mmHg BMI (Body Mass Index) 28.5 kg/m2 Results Description No Information Available Procedures Description No Information Available Medical Devices Description No Information Available Encounters Type Date Location Provider Dx Diagnosis Office Visit 05/30/2019 [facility] Kwasi Corral, G70.00 Myasthenia gravis 12:00p [facility] without (acute) exacerbation R53.82 Chronic fatigue, unspecified R20.2 Paresthesia of skin Office Visit 04/07/2019 [place] Kwasi Corral, G70.00 Myasthenia gravis 3:15p [facility] without (acute) [facility] exacerbation R53.82 Chronic fatigue, unspecified R41.3 Other amnesia R20.2 Paresthesia of skin Assessments Date Code Description Provider 08/24/2019 G70.00 Myasthenia gravis without (acute) Kwasi Corral M.D. exacerbation 08/24/2019 R53.82 Chronic fatigue, unspecified Kwasi Corral M.D. 08/24/2019 R20.2 Paresthesia of skin Kwasi Corral M.D. 05/30/2019 G70.00 Myasthenia gravis without (acute) Kwasi Corral M.D. exacerbation 05/30/2019 R53.82 Chronic fatigue, unspecified Kwasi Corral M.D. 05/30/2019 R20.2 Paresthesia of skin Kwasi Corral M.D. 04/07/2019 G70.00 Myasthenia gravis without (acute) Kwasi Corral M.D. exacerbation 04/07/2019 R53.82 Chronic fatigue, unspecified Kwasi Corral M.D. 04/07/2019 R41.3 Other amnesia Kwasi Corral M.D. 04/07/2019 R20.2 Paresthesia of skin Kwasi Corral M.D. Plan of Treatment Future Appointment(s):12/14/2019 3:45 pm - Kwasi Corral M.D. at [facility]04/17/2020 4:00 pm - Sepideh Walters MD at [facility] Nerdeilzjfu79/12/2019 - Kwasi Corral M.D.G70.00 Myasthenia gravis without ( acute) exacerbationReferral:Elvia Miller MD, Allergy & ImmunologyFollow up:Follow up in 3 monthsRecommendations:Call me after your appointment with MeehttskthJ74.82 Chronic fatigue, lisgmeqtwvrS96.2 Paresthesia of skin Functional Status Description No Information Available Mental Status Description No Information Available Referrals Refer to Dr Reason for Referral Status Appt Date McElvia perla MD Created [address] [phone]
--- NOTE | 2019-10-01 10:36 | UC ---
Eye Complaint HPI - HPI Summary HPI Summary: Patient is a 54 year old female, who present today to the urgent care with eye redness since yesterday. 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 She noticed RIGHT eye pink w/ watery drainage. Woke up today w/ crusted RIGHT eye and also LEFT eye also irritated. Has conjunctival redness. Denies any foreign body sensation or grittiness Does not use any contact lens Denies any other symptoms - History of Current Complaint Stated Complaint: EYE IRRITATION Time Seen by Provider: 10/01/19 10:26 Hx Obtained From: Patient Hx Last Menstrual Period: n/a - Allergies/Home Medications Allergies/Adverse Reactions: Allergies Allergy/AdvReac Type Severity Reaction Status Date / Time milk Allergy Unknown Verified 10/01/19 10:33 Reaction Details orange Allergy Unknown Verified 10/01/19 10:33 Reaction Details vitamin k Allergy See Comment Uncoded 10/01/19 10:33 Home Medications: Home Medications Gabapentin CAP(*) [Neurontin 100 mg CAP(*)] 1 tab BID 10/01/19 [History Confirmed 10/01/19] Montelukast Sodium TAB* [Singulair 10 MG TAB*] 1 tab QPM 10/01/19 [History Confirmed 10/01/19] Mycophenolate Mofetil TAB(*) [Cellcept TAB(*)] 2 tab BID 10/01/19 [History Confirmed 10/01/19] Venlafaxine EXT RELEASE CAP* [Effexor Xr CAP*] 1 tab DAILY 10/01/19 [History Confirmed 10/01/19] predniSONE 10 mg TAB [Deltasone 10 MG TAB*] 1 tab DAILY 10/01/19 [History Confirmed 10/01/19] PMH/Surg Hx/FS Hx/Imm Hx - Additional Past Medical History Additional PMH: Past Medical History : Myasthenia gravis, asthma, anxiety, allergies, Hyperlipidemia, DVT left leg post 1992- clotting factors were normal Past Surgical History: Appedectomy, 07/28/17, [place]; uterine ablation, left carpal and cupal tunnel releases-last surgery was 08/2015;, bicep repair , clavicle reduction Family History : non contributory Social History : Occasional alcohol, non smoker, no drug use. Lives with family . Previously Healthy: Yes - Surgical History Surgical History: Yes Surgery Procedure, Year, and Place: Appedectomy, 07/28/17, [place]; uterine ablation, left carpal and cupal tunnel releases-last surgery was 08/2015; DVT left leg post 1992- clotting factors were normal. bicep repair. clavicle reduction. appy 07/2017 - Family History Known Family History: Positive: Cardiac Disease, Hypertension, Diabetes, Other - CA, Non-Contributory - Social History Alcohol Use: Weekly Alcohol Amount: 1-2 Substance Use Type: None Smoking Status (MU): Never Smoked Tobacco Have You Smoked in the Last Year: No - Immunization History Most Recent Influenza Vaccination: none Review of Systems All Other Systems Reviewed And Are Negative: Yes Constitutional: Positive: Negative Skin: Positive: Negative Eyes: Positive: Drainage, Eye Redness ENT: Positive: Negative Respiratory: Positive: Negative Cardiovascular: Positive: Negative Gastrointestinal: Positive: Negative Genitourinary: Positive: Negative Motor: Positive: Negative Neurovascular: Positive: Negative Musculoskeletal: Positive: Negative Neurological: Positive: Negative Psychological: Positive: Negative Is Patient Immunocompromised?: No Physical Exam - Summary Physical Exam Summary: Vital Signs Reviewed: Yes A+Ox3, no distress Eyes: EOMI and PERRLA intact. Right conjunctiva with erythema and greenish yellow discharge noted at the medial canthus. Minimal erythema of the left conjunctiva. No discharge noted in the left eye ENT: Hearing grossly normal neck: supple Respiratory: Positive: No respiratory distress, No accessory muscle use Cardiovascular: skin color reflect adequate perfusion Musculoskeletal Exam: KIRK x 4 without difficulty Neurological: Positive: Alert, ambulatory without difficulty Psychological: Positive: Normal Response To Family Skin: Positive: no rash, no ecchymosis Triage Information Reviewed: Yes Vital Signs Reviewed: Yes Eye Complaint Course/Dx - Course Course Of Treatment: During the visit today, we discussed the findings which are consistent with conjunctivitis, more on the right than the left. Given her history of myasthenia gravis. Reviewed the antibiotics that can be used- all of them supposed to be used with caution. Erythromycin appears to be relatively safer than fluoroquinolones and aminoglycosides. Advised her to still monitor for any worsening of myasthenia gravis. I will prescribe the medication to the pharmacy . Patient expressed understanding . - Differential Dx/Diagnosis Provider Diagnosis: Conjunctivitis Discharge ED - Sign-Out/Discharge Documenting (check all that apply): Patient Departure All imaging exams completed and their final reports reviewed: No Studies - Discharge Plan Condition: Stable Disposition: HOME Prescriptions: Erythromycin OPTH OINT* [Erythromycin 0.5% OPTH OINT*] 1 applic BOTH EYES Q6H 5 Days #1 ophth.oint Patient Education Materials: Conjunctivitis (ED) Referrals: Rick Zaragoza MD [Primary Care Provider] - 3 Days Additional Instructions: Please start taking the medication as prescribed to the pharmacy . Follow up with your primary care doctor in 3 days if needed. Please follow up with ophthalmology for the consult if worsening Patients blood pressure slightly high in Urgent care today in pre-hypertensive range , plan follow up with PCP for better control Return to Urgent care / ER if symptoms get worse. - Billing Disposition and Condition Condition: STABLE Disposition: Home
[2019-10-01 10:40] VITALS: BP 132/89
== END 2019-10-01 11:04 | disposition home or self-care (01) ==
LOC: UCCORT 09:20
DX: H10.9 Unspecified conjunctivitis (principal); J45.909 Unspecified asthma, uncomplicated; F41.9 Anxiety disorder, unspecified; Z91.09 Other allergy status, other than to drugs and biological substances; Z79.899 Other long term (current) drug therapy; Z91.011 Allergy to milk products; Z91.018 Allergy to other foods
CPT/HCPCS: 99212; G0463

== ENCOUNTER 2022-07-24 13:57 | Inpatient (IN) ==
[2022-07-24] MEDS ORDERED: Immune Globulin IV Order (CPOE ENTRY PROTOCOL) IV SCH (15:00)
[2022-07-24] MEDS ORDERED: [UNRECOGNIZED DRUG - OTHER] IV ONE (16:00)
[2022-07-24] MEDS ORDERED: IMMUNE GLOB IV ONE (16:00)
[2022-07-24] MEDS ORDERED: PRIVIGEN IV ONE (16:00)
[2022-07-24 16:05] LABS: ABS Basophils 0.1 10^3/ul (0-0.2); ABS Eosinophils 0.2 10^3/ul (0-0.6); ABS Lymphocytes 3.2 10^3/ul (1.0-4.8); ABS Monocytes 0.7 10^3/ul (0-0.8); ABS Neutrophils 6.1 10^3/ul (1.5-7.7); Eosinophil % 1.9 %; Hematocrit 43 % (35-47); Hemoglobin 14.1 g/dL (12.0-16.0); Lymphocyte % 30.7 %; Mean Corpuscular HGB Conc 33 g/dL (31-36); Mean Corpuscular Hemoglobin 28 pg (27-31); Mean Corpuscular Volume 85 fL (80-97); Mean Platelet Volume 8.1 fL (7.4-10.4); Platelet Count 287 10^3/uL (150-450); Red Blood Count 5.01 10^6 /uL (3.70-4.87); Red Cell Distribution Width 14 % (10-15); White Blood Count 10.3 10^3/uL (3.5-10.8)
[2022-07-24 16:31] LABS: Albumin 4.2 g/dL (3.2-5.2); Albumin/Globulin Ratio 1.7 (1-3); Calcium 9.4 mg/dL (8.6-10.3); Globulin 2.5 g/dL (2-4); Potassium 4.1 mmol/L (3.5-5.0); Total Bilirubin 0.4 mg/dL (0.2-1.0); Total Protein 6.7 g/dL (6.4-8.9); eGFR CKD-EPI 72.6 (>60)
[2022-07-24] MEDS ORDERED: Albuterol HFA INHALER 8 gm MDI INH PRN (18:33)
[2022-07-24] MEDS: Enoxaparin 40 MG/0.4 ML SYR SUBCUT SCH (22:26)
[2022-07-24] MEDS: Mometasone/Formoter 200/5 MDI INH SCH (22:27)
[2022-07-25 07:10] LABS: ABS Basophils 0.1 10^3/ul (0-0.2); ABS Eosinophils 0.1 10^3/ul (0-0.6); ABS Lymphocytes 2.2 10^3/ul (1.0-4.8); ABS Monocytes 0.7 10^3/ul (0-0.8); ABS Neutrophils 5.7 10^3/ul (1.5-7.7); Eosinophil % 0.9 %; Hematocrit 44 % (35-47); Hemoglobin 14.4 g/dL (12.0-16.0); Lymphocyte % 25.4 %; Mean Corpuscular HGB Conc 33 g/dL (31-36); Mean Corpuscular Hemoglobin 28 pg (27-31); Mean Corpuscular Volume 86 fL (80-97); Mean Platelet Volume 8.1 fL (7.4-10.4); Platelet Count 269 10^3/uL (150-450); Red Blood Count 5.08 10^6 /uL (3.70-4.87); Red Cell Distribution Width 14 % (10-15); White Blood Count 8.8 10^3/uL (3.5-10.8)
[2022-07-25 07:32] LABS: Calcium 8.9 mg/dL (8.6-10.3); Magnesium 2.4 mg/dL (1.9-2.7); Potassium 4.4 mmol/L (3.5-5.0); eGFR CKD-EPI 72.6 (>60)
[2022-07-25] MEDS: Cholecalciferol (VIT D3) 1,000 unit TAB PO SCH (09:38)
[2022-07-25] MEDS: Venlafaxine XR 75 mg PO SCH (09:40)
[2022-07-25] MEDS: Mometasone/Formoter 200/5 MDI INH SCH ×2 (12:49→21:09)
[2022-07-25] MEDS ORDERED: IMMUNE GLOB IV SCH (16:00)
[2022-07-25] MEDS ORDERED: PRIVIGEN IV SCH (16:00)
[2022-07-25] MEDS ORDERED: [UNRECOGNIZED DRUG - OTHER] IV SCH (16:00)
[2022-07-25] MEDS: Enoxaparin 40 MG/0.4 ML SYR SUBCUT SCH (21:29)
[2022-07-26] MEDS: Mometasone/Formoter 200/5 MDI INH SCH ×2 (07:53→21:22)
[2022-07-26] MEDS: Venlafaxine XR 75 mg PO SCH (08:54)
[2022-07-26] MEDS: Cholecalciferol (VIT D3) 1,000 unit TAB PO SCH (08:54)
[2022-07-26] MEDS: [UNRECOGNIZED DRUG - OTHER] IV SCH (14:39)
[2022-07-26] MEDS: IMMUNE GLOB IV SCH (14:39)
[2022-07-26] MEDS: PRIVIGEN IV SCH (14:39)
[2022-07-26] MEDS: Enoxaparin 40 MG/0.4 ML SYR SUBCUT SCH (20:55)
[2022-07-27] MEDS: Mometasone/Formoter 200/5 MDI INH SCH ×2 (08:52→19:04)
[2022-07-27] MEDS: DESLORATIDINE 5 MG PO SCH ×2 (10:03→10:23)
[2022-07-27] MEDS: LevoCETirizine 5 mg TAB (NF) PO SCH ×2 (10:03→10:23)
[2022-07-27] MEDS: Cholecalciferol (VIT D3) 1,000 unit TAB PO SCH (10:04)
[2022-07-27] MEDS: Venlafaxine XR 75 mg PO SCH (10:07)
[2022-07-27] MEDS: IMMUNE GLOB IV SCH (12:48)
[2022-07-27] MEDS: [UNRECOGNIZED DRUG - OTHER] IV SCH (12:48)
[2022-07-27] MEDS: PRIVIGEN IV SCH (12:48)
[2022-07-27] MEDS: Enoxaparin 40 MG/0.4 ML SYR SUBCUT SCH (22:36)
[2022-07-28] MEDS: Mometasone/Formoter 200/5 MDI INH SCH (07:49)
[2022-07-28] MEDS: Venlafaxine XR 75 mg PO SCH (08:33)
[2022-07-28] MEDS: Cholecalciferol (VIT D3) 1,000 unit TAB PO SCH (08:35)
[2022-07-28] MEDS: DESLORATIDINE 5 MG PO SCH (12:24)
[2022-07-28] MEDS: LevoCETirizine 5 mg TAB (NF) PO SCH (12:24)
[2022-07-28] MEDS: PRIVIGEN IV SCH (13:21)
[2022-07-28] MEDS: IMMUNE GLOB IV SCH (13:21)
[2022-07-28] MEDS: [UNRECOGNIZED DRUG - OTHER] IV SCH (13:21)
[2022-07-28 15:52] VITALS: BP 135/79
== END 2022-07-28 16:50 | disposition home or self-care (01) | DRG 42 ==
LOC: ED 13:57 → EDHOLD 13:57 → SUATTDRO 18:11 → MEDTELE 07-25 01:05
PROVIDERS: ADMIT Internal Medicine; ATTEND Hospitalist

== ENCOUNTER 2022-11-16 10:02 | Inpatient (IN) ==
[2022-11-16] MEDS ORDERED: Lactated Ringers 1000 ml BAG 1,000 ML IV ONE (10:42)
[2022-11-16] MEDS ORDERED: Magnesium Sulfate 2 gm BAG 2 GM/50 ML BAG IVPB ONE (10:42)
[2022-11-16 11:21] LABS: Hematocrit 36 % (35-47); Hemoglobin 12.1 g/dL (12.0-16.0); Mean Corpuscular HGB Conc 33 g/dL (31-36); Mean Corpuscular Hemoglobin 28 pg (27-31); Mean Corpuscular Volume 84 fL (80-97); Mean Platelet Volume 7.6 fL (7.4-10.4); Platelet Count 239 10^3/uL (150-450); Red Cell Distribution Width 15 % (10-15); White Blood Count 13.9 10^3/uL (3.5-10.8)
[2022-11-16 11:22] LABS: Venous Bicarbonate HCO3 29.3 mmol/L (24-28)
[2022-11-16 11:38] LABS: Activated Partial Thrombo Time 28.5 seconds (26.0-38.0); INR 0.99 (0.88-1.18)
[2022-11-16] MEDS: Albuterol/Ipratropium NEB.SOL (2.5/0.5 MG) 3 ML NEB.SOLN INH SCH ×3 (11:50→14:29)
[2022-11-16 12:13] LABS: Albumin 3.5 g/dL (3.2-5.2); Albumin/Globulin Ratio 1.5 (1-3); Calcium 8.7 mg/dL (8.6-10.3); Creatinine, Serum 0.85 mg/dL (0.51-0.95); Direct Bilirubin 0.1 mg/dL (0.03-0.18); Globulin 2.4 g/dL (2-4); Indirect Bilirubin 0.3 mg/dL (0.3-1.0); Magnesium 2.1 mg/dL (1.9-2.7); Potassium 4.2 mmol/L (3.5-5.0); Total Bilirubin 0.4 mg/dL (0.2-1.0); Total Protein 5.9 g/dL (6.4-8.9); eGFR CKD-EPI 79.4 (>60)
[2022-11-16 12:20] LABS: TSH Ultra Thyroid Stim Horm 0.31 mcIU/mL (0.34-5.60)
[2022-11-16] MEDS ORDERED: Iohexol 350 (CONTRAST) 500 ML MDV IV ONE (12:21)
[2022-11-16 12:22] LABS: Free T4 0.8 ng/dL (0.61-1.12)
[2022-11-16 12:47] LABS: High Sensitivity Troponin 1 Hr 9 pg/mL (<15)
[2022-11-16 13:33] LABS: ABS Basophils 0.1 10^3/ul (0-0.2); ABS Lymphocytes 0.7 10^3/ul (1.0-4.8); ABS Monocytes 0.5 10^3/ul (0-0.8); ABS Neutrophils 12.5 10^3/ul (1.5-7.7); Lymphocyte % 5.3 %
[2022-11-16] MEDS ORDERED: DOXYcycline 100 MG in NS 0.9% 250 ml 250 ML IVPB ONE (13:57)
[2022-11-16] MEDS ORDERED: Polyethylene Glycol 3350 17 GM PACKET PO PRN (14:55)
[2022-11-16] MEDS: Enoxaparin 40 MG/0.4 ML SYR SUBCUT SCH (17:14)
[2022-11-16] MEDS: IVABRADINE 5 MG PO SCH (22:44)
[2022-11-16] MEDS: Fluticasone NASAL SPRAY 50MCG 16 gm SPRAY BTL INTRANASAL SCH (22:46)
[2022-11-16] MEDS: Albuterol HFA INHALER 8 gm MDI INH PRN (22:46)
[2022-11-17] MEDS ORDERED: DOXYcycline 100 MG in NS 0.9% 250 ml 250 ML IVPB SCH (02:00)
[2022-11-17 06:11] LABS: Hematocrit 32 % (35-47); Hemoglobin 10.6 g/dL (12.0-16.0); Mean Corpuscular HGB Conc 33 g/dL (31-36); Mean Corpuscular Hemoglobin 29 pg (27-31); Mean Corpuscular Volume 87 fL (80-97); Mean Platelet Volume 7.9 fL (7.4-10.4); Platelet Count 229 10^3/uL (150-450); Red Blood Count 3.67 10^6 /uL (3.70-4.87); Red Cell Distribution Width 16 % (10-15); White Blood Count 11.6 10^3/uL (3.5-10.8)
[2022-11-17 06:31] LABS: ABS Lymphocytes 1.6 10^3/ul (1.0-4.8); ABS Monocytes 0.6 10^3/ul (0-0.8); ABS Neutrophils 9.4 10^3/ul (1.5-7.7); Eosinophil % 0.1 %; Lymphocyte % 13.6 %
[2022-11-17 06:32] LABS: Creatinine, Serum 0.71 mg/dL (0.51-0.95); Magnesium 2.1 mg/dL (1.9-2.7); Potassium 4.1 mmol/L (3.5-5.0); eGFR CKD-EPI 98.5 (>60)
[2022-11-17] MEDS: Mometasone/Formoter 200/5 MDI INH SCH (08:28)
[2022-11-17] MEDS ORDERED: DESLORATIDINE 5 MG PO SCH (09:00)
[2022-11-17] MEDS: Fluticasone NASAL SPRAY 50MCG 16 gm SPRAY BTL INTRANASAL SCH ×2 (10:21→21:50)
[2022-11-17] MEDS: IVABRADINE 5 MG PO SCH ×2 (10:21→21:50)
[2022-11-17] MEDS: Venlafaxine XR 75 mg PO SCH (10:22)
[2022-11-17] MEDS: Cholecalciferol (VIT D3) 1,000 unit TAB PO SCH (10:23)
[2022-11-17] MEDS: cefTRIAXone 1 gm/50 mL D5W 1 GM/50 ML BAG IV SCH (11:53)
[2022-11-17] MEDS ORDERED: Azithromycin 500 mg/250 ml NS 500 MG/250 ML BAG IVPB SCH (12:00)
[2022-11-17] MEDS: Enoxaparin 40 MG/0.4 ML SYR SUBCUT SCH (13:20)
[2022-11-17] MEDS: DOXYcycline 100 MG in NS 0.9% 250 ml 250 ML IVPB SCH (21:47)
[2022-11-17] MEDS: Albuterol HFA INHALER 8 gm MDI INH PRN (22:11)
[2022-11-18 06:24] LABS: Hematocrit 35 % (35-47); Hemoglobin 11.5 g/dL (12.0-16.0); Mean Corpuscular HGB Conc 33 g/dL (31-36); Mean Corpuscular Hemoglobin 29 pg (27-31); Mean Corpuscular Volume 87 fL (80-97); Mean Platelet Volume 7.8 fL (7.4-10.4); Platelet Count 266 10^3/uL (150-450); Red Blood Count 4.02 10^6 /uL (3.70-4.87); Red Cell Distribution Width 15 % (10-15); White Blood Count 8.2 10^3/uL (3.5-10.8)
[2022-11-18 06:40] LABS: Calcium 8.3 mg/dL (8.6-10.3); Creatinine, Serum 0.69 mg/dL (0.51-0.95); Potassium 4.4 mmol/L (3.5-5.0); eGFR CKD-EPI 100.5 (>60)
[2022-11-18] MEDS: Mometasone/Formoter 200/5 MDI INH SCH (07:43)
[2022-11-18] MEDS: Venlafaxine XR 75 mg PO SCH (08:47)
[2022-11-18] MEDS: IVABRADINE 5 MG PO SCH (08:52)
[2022-11-18] MEDS: Cholecalciferol (VIT D3) 1,000 unit TAB PO SCH (08:52)
[2022-11-18] MEDS: Fluticasone NASAL SPRAY 50MCG 16 gm SPRAY BTL INTRANASAL SCH (08:54)
[2022-11-18] MEDS: DOXYcycline 100 MG in NS 0.9% 250 ml 250 ML IVPB SCH (09:04)
[2022-11-18] MEDS: cefTRIAXone 1 gm/50 mL D5W 1 GM/50 ML BAG IV SCH (11:38)
[2022-11-18 12:11] LABS: C Reactive Protein 73.92 mg/L (<8.01)
[2022-11-18 13:56] VITALS: BP 132/84
[2022-11-18] MEDS: Enoxaparin 40 MG/0.4 ML SYR SUBCUT SCH (15:42)
[2022-11-19] MEDS ORDERED: cefTRIAXone 1 gm/50 mL D5W 1 GM/50 ML BAG IV SCH (08:00)
[2022-11-22 14:19] LABS: Fungitell Qualitative Result Negative (Negative); Fungitell Quantitative Value <31 pg/mL (<60 pg/mL)
== END 2022-11-18 17:25 | disposition home or self-care (01) | DRG 139 ==
LOC: EDHOLD 10:02 → ED 10:02 → OBSVTOIN 14:55 → SUATTDRO 14:56 → MED 19:40
PROVIDERS: ADMIT Internal Medicine; ATTEND Internal Medicine Hematology & Oncology